=== PATIENT | female | born 1965 | race Hispanic/Latino ===

== ENCOUNTER 2018-12-30 13:25 | Emergency (ER) | payer OTHER ==
[2018-12-30 14:07] LABS: Urine Blood 1+ (NEG); Urine Glucose NEGATIVE (NEG); Urine Protein NEGATIVE (NEG)
[2018-12-30] MEDS ORDERED: FUROSEMIDE 40 MG/4 ML VIAL ONE (14:21)
[2018-12-30 14:27] LABS: Absolute Lymphocytes (CBC) 1.1 K/uL (0.7-4.9); Absolute Monocytes 0.3 K/uL (0.1-1.3); Absolute Neutrophil 3.4 K/uL (1.8-8.0); Basophils % 0.7 % (0-1.3); Eosinophils % 1.4 % (0-4.4); Hematocrit 38.1 % (36.0-45.0); Lymphocytes % 22.1 % (15.3-44.8); MPV 7.8 fL (7.6-11.3); Monocytes % 6.4 % (3.3-12.3); Protime INR 1.06; RBC Red Blood Cell Count 4.18 M/uL (3.86-4.86)
[2018-12-30 14:43] LABS: ALT/SGPT 25 U/L (12-78); AST/SGOT 13 U/L (15-37); Albumin 3.6 g/dL (3.4-5.0); Alkaline Phosphatase 108 U/L (45-117); BUN Blood Urea Nitrogen 12 mg/dL (7-18); Bicarbonate 26 mmol/L (21-32); Bilirubin Direct 0.1 mg/dL (0-0.2); Bilirubin Total 0.4 mg/dL (0.2-1.0); Glucose Level 87 mg/dL (74-106); NT PRO-BNP 47 pg/mL (<125); Potassium 3.5 mmol/L (3.5-5.1); Protein, Total 7.1 g/dL (6.4-8.2); Sodium Level 139 mmol/L (136-145); Troponin (Emerg Dept Use Only) < 0.02 ng/mL (0.0-0.045)
--- NOTE | 2018-12-30 14:56 | RAD REPORT ---
EXAM DESCRIPTION: RAD - Chest Single View - 12/30/2018 2:45 pm CLINICAL HISTORY: Leg swelling, shortness of breath COMPARISON: None. TECHNIQUE: AP portable chest image was obtained 1429 hours . FINDINGS: Lungs are clear. Heart and vasculature are normal. No measurable pleural effusion and no p neumothorax. No acute bony abnormality seen. No acute aortic findings suspected. IMPRESSION: No acute cardiopulmonary process.
--- NOTE | 2018-12-30 15:35 | RAD REPORT ---
EXAM DESCRIPTION: CT - Head Brain Wo Cont - 12/30/2018 3:27 pm CLINICAL HISTORY: ataxia CVA, TIA COMPARISON: No comparisons TECHNIQUE: All CT scans are performed using dose optimization technique as appropriate and may inclu de automated exposure control or mA/KV adjustment according to patient size. FINDINGS: No intracranial hemorrhage, hydrocephalus or extra-axial fluid collection.Advanced general ized brain atrophy is present with moderate periventricular and deep white matter chronic microvascul ar ischemic changes.No areas of brain edema or evidence of midline shift. The paranasal sinuses and mastoids are clear. The calvarium is intact. IMPRESSION: No acute intracranial abnormality.
--- NOTE | 2018-12-30 16:39 | RAD REPORT ---
EXAM DESCRIPTION: MRI - Brain Wo Cont - 12/30/2018 4:21 pm CLINICAL HISTORY: numbness CVA symptomology. COMPARISON: Head Brain Wo Cont dated 12/30/2018 TECHNIQUE: Multi-sequence, multiplanar MR imaging of the brain was performed without contrast. FINDINGS: No intracranial hemorrhage, hydrocephalus or extra-axial fluid collections.Prominent brain atrophy is seen with confluent T2/FLAIR hyperintensity in the periventricular and deep white matter compatible with chronic microvascular ischemic changes. No edema or shift of midline structures. No f indings to suspect brain mass. DWI is negative for acute CVA. Midline structures are normally formed. Mastoid air cells and paranasal sinuses are clear. IMPRESSION: Negative for acute CVA or other acute intracranial process.
--- NOTE | 2018-12-30 17:11 | EDPHYS ---
Physician Documentation [facility] Name: Erma Pham Age: 53 yrs Sex: Female : 1965 Arrival Date: 12/30/2018 Time: 13:29 Bed 18 Private MD: ED Physician Boris Guadarrama HPI: 12/30 16:05 This 53 yrs old Female presents to ER via Ambulatory with complaints of Leg kdr Pain, Numbness Of Hand. 16:05 The patient c/o pain and numbness to both upper extremities from the elbows down that kdr has been ongoing for the past six months. She also has swelling to both lower extremities for the past two to three months. Severity of symptoms: At their worst the symptoms were mild moderate just prior to arrival, in the emergency department the symptoms are unchanged. The patient has not experienced similar symptoms in the past. The patient has not recently seen a physician. 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 - Social history:: Smoking status: Patient/guardian denies using tobacco, Patient/guardian denies using alcohol. - Ebola Screening: : Patient negative for fever greater than or equal to 101.5 degrees Fahrenheit, and additional compatible Ebola Virus Disease symptoms Patient denies exposure to infectious person Patient denies travel to an Ebola-affected area in the 21 days before illness onset. ROS: 16:05 Constitutional: Negative for fever, chills, and weight loss, Eyes: Negative for injury, kdr pain, redness, and discharge, ENT: Negative for injury, pain, and discharge, Neck: Negative for injury, pain, and swelling, Cardiovascular: Negative for chest pain, palpitations, and edema, Respiratory: Negative for shortness of breath, cough, wheezing, and pleuritic chest pain, Abdomen/GI: Negative for abdominal pain, nausea, vomiting, diarrhea, and constipation, Back: Negative for injury and pain, : Negative for injury, bleeding, discharge, and swelling, Skin: Negative for injury, rash, and discoloration, Psych: Negative for depression, anxiety, suicide ideation, homicidal ideation, and hallucinations, Allergy/Immunology: Negative for hives, rash, and allergies, Endocrine: Negative for neck swelling, polydipsia, polyuria, polyphagia, and marked weight changes, Hematologic/Lymphatic: Negative for swollen nodes, abnormal bleeding, and unusual bruising. 16:05 MS/extremity: Positive for pain, swelling, tenderness, of the right leg and left leg, Negative for acute changes. 16:05 Neuro: Positive for numbness, tingling, of the right arm and left arm. Exam: 16:05 Constitutional: This is a well developed, well nourished patient who is awake, alert, kdr and in no acute distress. Head/Face: Normocephalic, atraumatic. Eyes: Pupils equal round and reactive to light, extra-ocular motions intact. Lids and lashes normal. Conjunctiva and sclera are non-icteric and not injected. Cornea within normal limits. Periorbital areas with no swelling, redness, or edema. Neck: Trachea midline, no thyromegaly or masses palpated, and no cervical lymphadenopathy. Supple, full range of motion without nuchal rigidity, or vertebral point tenderness. No Meningismus. Chest/axilla: Normal chest wall appearance and motion. Nontender with no deformity. No lesions are appreciated. Cardiovascular: Regular rate and rhythm with a normal S1 and S2. No gallops, murmurs, or rubs. Normal PMI, no JVD. No pulse deficits. Respiratory: Lungs have equal breath sounds bilaterally, clear to auscultation and percussion. No rales, rhonchi or wheezes noted. No increased work of breathing, no retractions or nasal flaring. Abdomen/GI: Soft, non-tender, with normal bowel sounds. No distension or tympany. No guarding or rebound. No evidence of tenderness throughout. Back: No spinal tenderness. No costovertebral tenderness. Full range of motion. Skin: Warm, dry with normal turgor. Normal color with no rashes, no lesions, and no evidence of cellulitis. Neuro: Awake and alert, GCS 15, oriented to person, place, time, and situation. Cranial nerves II-XII grossly intact. Motor strength 5/5 in all extremities. Sensory grossly intact. Cerebellar exam normal. Normal gait. Psych: Awake, alert, with orientation to person, place and time. Behavior, mood, and affect are within normal limits. 16:05 Musculoskeletal/extremity: Extremities: Vital Signs: 13:41 BP 153 / 95; Pulse 72; Resp 18; Temp 97.6(O); Pulse Ox 100% on R/A; Weight 79.38 kg; hj Height 5 ft. 2 in. (157.48 cm); Pain 10/10; 15:05 BP 148 / 83; Pulse 61; Resp 16; Pulse Ox 100% on R/A; Pain 10/10; ed1 17:09 Pulse 63; Resp 18; Pulse Ox 100% on R/A; Pain 7/10; ed1 13:41 Body Mass Index 32.01 (79.38 kg, 157.48 cm) hj MDM: 16:05 Data reviewed: vital signs, nurses notes. kdr 17:10 Patient medically screened. kdr 12/30 13:59 Order name: Urine Dipstick--Ancillary (enter results); Complete Time: 14:45 eb 12/30 14:05 Order name: Basic Metabolic Panel kdr 12/30 14:05 Order name: CBC with Diff; Complete Time: 14:45 kdr 12/30 14:05 Order name: LFT's; Complete Time: 14:45 kdr 12/30 14:05 Order name: Magnesium; Complete Time: 14:45 kdr 12/30 14:05 Order name: NT PRO-BNP; Complete Time: 14:45 kdr 12/30 14:05 Order name: PT-INR; Complete Time: 14:45 kdr 12/30 14:05 Order name: Troponin (emerg Dept Use Only); Complete Time: 14:45 kdr 12/30 14:05 Order name: XRAY Chest (1 view); Complete Time: 16:04 kdr 12/30 14:05 Order name: Basic Metabolic Panel; Complete Time: 14:45 EDMS 12/30 15:15 Order name: CT Head Brain wo Cont; Complete Time: 16:04 kdr 12/30 15:21 Order name: Brain Wo Cont; Complete Time: 17:07 EDMS 12/30 14:05 Order name: Cardiac monitoring; Complete Time: 14:16 kdr 12/30 14:05 Order name: IV Saline Lock; Complete Time: 14:16 kdr 12/30 14:05 Order name: Labs collected and sent; Complete Time: 14:16 kdr 12/30 14:05 Order name: O2 Per Protocol; Complete Time: 14:16 kdr 12/30 14:05 Order name: O2 Sat Monitoring; Complete Time: 14:16 kdr 12/30 14:05 Order name: EKG - Nurse/Tech; Complete Time: 14:26 kdr Administered Medications: 14:21 Drug: Lasix 40 mg Route: IVP; Site: right antecubital; ed1 15:09 Follow up: Response: No adverse reaction; pt to bathroom to void X2 ed1 17:23 Drug: Cipro 500 mg Route: PO; ed1 17:23 Follow up: Response: Medication administered at discharge. ed1 Disposition: 12/30/18 17:10 Discharged to Home. Impression: bilateral Upper extremity paresthesia, lower extremity swelling, weakness, urinary tract infection. - Condition is Stable. - Discharge Instructions: Urinary Tract Infection, Adult, Yiwa-wl-[id number], Edema, Hici-uw-Ewco, Weakness, Jntu-bd-Gxyj, Paresthesia, Hpse-kq-Lmwn, Peripheral Edema. - Prescriptions for Lasix 20 mg Oral Tablet - take 1 tablet by ORAL route once daily; 20 tablet. Cipro 500 mg Oral Tablet - take 1 tablet by ORAL route every 12 hours for 7 days; 14 tablet. - Medication Reconciliation Form, Thank You Letter, Antibiotic Education form. - Follow up: Private Physician; When: 2 - 3 days; Reason: If symptoms return, Further diagnostic work-up, Recheck today's complaints, Continuance of care, Re-evaluation by your physician. - Problem is new. - Symptoms have improved. Signatures: Dispatcher [employer] EDAL Boris Guadarrama MD MD kdr Lisha Sherman RN RN ed1 Kike Vernon RN RN Corrections: (The following items were deleted from the chart) 17:26 17:10 12/30/2018 17:10 Discharged to Home. Impression: bilateral Upper extremity ed1 paresthesia, lower extremity swelling, weakness, urinary tract infection. Condition is Stable. Forms are Medication Reconciliation Form, Thank You Letter, Antibiotic Education, Prescription Opioid Use. Follow up: Private Physician; When: 2 - 3 days; Reason: If symptoms return, Further diagnostic work-up, Recheck today's complaints, Continuance of care, Re-evaluation by your physician. Problem is new. Symptoms have improved. kdr
--- NOTE | 2018-12-30 17:11 | ER ---
Nurse's Notes [facility] Name: Erma Pham Age: 53 yrs Sex: Female : 1965 Arrival Date: 12/30/2018 Time: 13:29 Bed 18 Private MD: Diagnosis: bilateral Upper extremity paresthesia, lower extremity swelling, weakness, urinary tract infection Presentation: 12/30 13:34 Presenting complaint: Patient states: i have this numbness of my both hands for 6 hj months already; my L leg is hurting and is getting weak too for the same time, 6 months;. Transition of care: patient was not received from another setting of care. Onset of symptoms was December 30, 2018. Risk Assessment: Do you want to hurt yourself or someone else? Patient reports no desire to harm self or others. Initial Sepsis Screen: Does the patient meet any 2 criteria? No. Patient's initial sepsis screen is negative. Does the patient have a suspected source of infection? No. Patient's initial sepsis screen is negative. Care prior to arrival: None. 13:34 Method Of Arrival: Ambulatory 13:34 Acuity: JUSTIN 3 hj Triage Assessment: 13:35 General: Appears in no apparent distress. uncomfortable, Behavior is calm, cooperative, hj appropriate for age. 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 - Social history:: Smoking status: Patient/guardian denies using tobacco, Patient/guardian denies using alcohol. - Ebola Screening: : Patient negative for fever greater than or equal to 101.5 degrees Fahrenheit, and additional compatible Ebola Virus Disease symptoms Patient denies exposure to infectious person Patient denies travel to an Ebola-affected area in the 21 days before illness onset. Screenin:35 Abuse screen: Denies threats or abuse. Denies injuries from another. Nutritional hj screening: No deficits noted. Tuberculosis screening: No symptoms or risk factors identified. Fall Risk None identified. Assessment: 13:47 General: Appears uncomfortable, Behavior is calm, cooperative. Pain: Complains of pain ed1 in right hand, left hand, right leg and left leg Pain currently is 10 out of 10 on a pain scale. Quality of pain is described as aching, Pain began about 6 months ago. Neuro: Level of Consciousness is awake, alert, obeys commands, Oriented to person, place, time, situation, Crayon Painter are equal bilaterally Reports numbness in right hand and left hand. Cardiovascular: Denies chest pain, Heart tones S1 S2 present Chest pain is denied. Respiratory: Airway is patent Respiratory effort is even, unlabored, Respiratory pattern is regular, symmetrical, Breath sounds are clear bilaterally. GI: No signs and/or symptoms were reported involving the gastrointestinal system. : No signs and/or symptoms were reported regarding the genitourinary system. EENT: No signs and/or symptoms were reported regarding the EENT system. Derm: Skin is intact, is healthy with good turgor, Skin is dry, Skin is normal, Skin temperature is warm redness noted to bilateral lower extremities. Musculoskeletal: Circulation, motion, and sensation intact. Range of motion: intact in all extremities, Swelling present in right leg and left leg. 15:05 Reassessment: Patient appears in no apparent distress at this time. No changes from ed1 previously documented assessment. Patient and/or family updated on plan of care and expected duration. Pain level reassessed. Patient is alert, oriented x 3, equal unlabored respirations, skin warm/dry/pink. Patient states symptoms have not improved. 17:09 Reassessment: Pt returned from radiology. Pt refuses blood pressure checks. Pt states ed1 "The cuff is too tight and I don't like it.". Vital Signs: 13:41 BP 153 / 95; Pulse 72; Resp 18; Temp 97.6(O); Pulse Ox 100% on R/A; Weight 79.38 kg; hj Height 5 ft. 2 in. (157.48 cm); Pain 10/10; 15:05 BP 148 / 83; Pulse 61; Resp 16; Pulse Ox 100% on R/A; Pain 10/10; ed1 17:09 Pulse 63; Resp 18; Pulse Ox 100% on R/A; Pain 7/10; ed1 13:41 Body Mass Index 32.01 (79.38 kg, 157.48 cm) ED Course: 13:29 Patient arrived in ED. rg4 13:35 Triage completed. hj 13:35 Arm band placed on right wrist. hj 13:35 Patient has correct armband on for positive identification. Bed in low position. Call hj light in reach. Side rails up X 1. Adult w/ patient. 13:44 Boris Guadarrama MD is Attending Physician. kdr 13:47 Lisha Sherman, RN is Primary Nurse. ed1 14:16 Basic Metabolic Panel Sent. ed1 14:16 Initial lab(s) drawn, by ED staff, sent to lab. Inserted saline lock: 20 gauge in right ed1 antecubital area, using aseptic technique. Blood collected. 14:30 X-ray completed. Portable x-ray completed in exam room. Patient tolerated procedure jb2 well. 14:31 EKG done, by quality lab technician. reviewed by Boris Guadarrama MD. sm3 14:36 XRAY Chest (1 view) In Process Unspecified. EDMS 15:27 CT Head Brain wo Cont In Process Unspecified. EDMS 15:42 Patient moved to MRI via wheelchair. em2 16:21 Brain Wo Cont In Process Unspecified. EDMS 17:25 No provider procedures requiring assistance completed. IV discontinued, intact, ed1 bleeding controlled, No redness/swelling at site. Pressure dressing applied. Administered Medications: 14:21 Drug: Lasix 40 mg Route: IVP; Site: right antecubital; ed1 15:09 Follow up: Response: No adverse reaction; pt to bathroom to void X2 ed1 17:23 Drug: Cipro 500 mg Route: PO; ed1 17:23 Follow up: Response: Medication administered at discharge. ed1 Intake: Outcome: 17:10 Discharge ordered by . kdr 17:25 Discharged to home ambulatory, with family. ed1 17:25 Condition: good 17:25 Discharge instructions given to patient, Instructed on discharge instructions, follow up and referral plans. medication usage, Demonstrated understanding of instructions, follow-up care, medications, Prescriptions given X 2. 17:26 Patient left the ED. ed1 Signatures: Dispatcher [employer] EDMS Boris Guadarrama MD MD kdr Buechter, Jesse jb2 Lisha Sherman, RN RN ed1 Shaun Gutierrez em2 Kike Vernon RN RN hj Garcia, Rubi rg4 Angela Gutierrez sm3 Corrections: (The following items were deleted from the chart) 13:41 13:34 Presenting complaint: Patient states: i have this numbness of my hands for 6 hj months already; hj 13:43 13:41 Pulse 72bpm; Resp 18bpm; Pulse Ox 100% RA; Temp 97.6F Oral; 79.38 kg; Height 5 hj ft. 2 in.; BMI: 32.0; Pain 10/10; hj 13:44 13:41 Pulse 72bpm; Resp 18bpm; Pulse Ox 100% RA; Temp 97.6F Oral; 79.38 kg; Height 5 hj ft. 2 in.; BMI: 32.0; Pain 10/10; hj 14:05 13:34 Acuity: JUSTIN 4 hj hj
[2018-12-30] MEDS ORDERED: CIPROFLOXACIN HCL 500 MG TAB ONE (17:29)
--- NOTE | 2018-12-30 22:28 | EKG ---
Test Date: 2018-12-30 Test Time: 14:23:22 Customer Success Director: ZOE-Corrina MEASUREMENT RESULTS: Intervals: Rate: 62 TX: 188 QRSD: 84 QT: 436 QTc: 442 [place]: P: 73 TX: 188 QRS: 64 T: 30 INTERPRETIVE STATEMENTS: Normal sinus rhythm Nonspecific T wave abnormality Abnormal ECG Compared to ECG 04/24/1997 14:25:00 T-wave abnormality now present Electronically Signed On 12-30-18 22:27:33 ROBOTICS APPLICATION ENGINEER by Chava Last
== END 2018-12-30 17:26 | disposition home or self-care (01) ==
LOC: ER 13:25
DX: N39.0 Urinary tract infection, site not specified (principal); R20.2 Paresthesia of skin; R60.9 Edema, unspecified
CPT/HCPCS: 36415; 70450; 70551; 71045; 80048; 80076; 81003; 83735; 83880; 84484; 85025; 85610; 93005; 96374; 99284; J1940

== ENCOUNTER 2019-04-05 02:23 | Observation (INO) | payer OTHER ==
[2019-04-05 02:44] LABS: Absolute Lymphocytes (CBC) 0.3 K/uL (0.7-4.9); Absolute Monocytes 0.7 K/uL (0.1-1.3); Basophils % 0.5 % (0-1.3); Eosinophils % 0.1 % (0-4.4); Hematocrit 37.5 % (36.0-45.0); MPV 7.9 fL (7.6-11.3); Monocytes % 6.7 % (3.3-12.3); RBC Red Blood Cell Count 4.14 M/uL (3.86-4.86)
[2019-04-05 02:46] LABS: Protime INR 1.1
[2019-04-05 02:51] LABS: Potassium 3.3 mmol/L (3.5-5.1)
--- NOTE | 2019-04-05 02:56 | ER ---
Nurse's Notes [facility] Name: Erma Pham Age: 53 yrs Sex: Female : 1965 Arrival Date: 04/05/2019 Time: 02:26 Bed 2 Private MD: Diagnosis: Transient cerebral ischemic attacks and related syndromes Presentation: 04/05 02:16 Presenting complaint: EMS states: they were toned out for report of pt having right bb sided weakness with last known well time approx 2 hours prior to their arrival. Transition of care: patient was not received from another setting of care. Onset of symptoms was April 05, 2019. Risk Assessment: Do you want to hurt yourself or someone else? Patient reports no desire to harm self or others. Initial Sepsis Screen: Does the patient meet any 2 criteria? No. Patient's initial sepsis screen is negative. Does the patient have a suspected source of infection? No. Patient's initial sepsis screen is negative. Care prior to arrival: IV initiated. 18 GA, 20 GA, in the left in the right antecubital area, hand, Glucose check: 141. 02:16 Method Of Arrival: EMS: [facility] bb 02:16 Acuity: JUSTIN 2 bb 02:20 Note pt is c/o headache 9/. bb 02:25 No acute neurological deficit is noted. The patients blood glucose was checked before ea arriving to the hospital and was found to be normal. Triage Assessment: 02:45 The onset of the patients symptoms was April 05, 2019 at 00:00. 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 - Social history:: Smoking status: . - Ebola Screening: : No symptoms or risks identified at this time. Screenin:32 Abuse screen: Denies threats or abuse. Nutritional screening: No deficits noted. ea Tuberculosis screening: No symptoms or risk factors identified. Fall Risk IV access (20 points). Assessment: 02:36 General: Appears uncomfortable, Behavior is calm, cooperative. Pain: Complains of pain ea in top of head, forehead, right eye and left eye. Neuro: Level of Consciousness is awake, alert, obeys commands, Oriented to person, place, time, situation. Neuro: Reports headache frontal area. Cardiovascular: Patient's skin is warm and dry. Respiratory: Airway is patent Respiratory effort is even, unlabored, Respiratory pattern is regular, symmetrical. Derm: Skin is pink, warm \T\ dry. Musculoskeletal: Circulation, motion, and sensation intact. 02:44 VAN Scoring: Arm Drift: Patients demonstrates NO arm weakness. Patient is VAN Negative. ea The patient has not been NPO before screening. The patient is alert, and able to follow commands. The patient does not exhibit slurred or garbled speech. The patient is not exhibiting difficulty speaking. The patient does not exhibit difficulty understanding words. The patient is able to swallow own secretions with no drooling or need for suction. Patient tolerated one teaspoon of water. No drooling, immediate coughing, gurgling, or clearing of the throat was noted. The patient tolerated 90mL of water. No drooling, immediate coughing, gurgling, or clearing of the throat was noted. The patient passed the bedside swallow screening. Oral medications may be given as ordered. Contact Physician for further diet orders. Provider notified of bedside swallow screening results: Eric Diaz MD. 03:04 Reassessment: Pt sabrina Lin [phone]. ea 03:30 Reassessment: Patient and/or family updated on plan of care and expected duration. Pain ea level reassessed. Patient is alert, oriented x 3, equal unlabored respirations, skin warm/dry/pink. 03:40 Reassessment: Report called to Khang MIGUEL. ea 03:41 T-PA (Activase) Screening:. ea 04:03 Reassessment: Patient and/or family updated on plan of care and expected duration. Pain ea level reassessed. Patient is alert, oriented x 3, equal unlabored respirations, skin warm/dry/pink. Pt admitted to fourth floor, pt taken via wheelchair per tech, pt tolerating well. Vital Signs: 02:34 BP 145 / 93; Pulse 96; Resp 18; Temp 99.5(O); Pulse Ox 96% on R/A; Weight 76.2 kg (R); bb Height 5 ft. 2 in. (157.48 cm) (R); Pain 9/10; 03:00 BP 129 / 91; Pulse 95; Resp 18; Pulse Ox 100% ; ea 03:30 BP 134 / 82; Pulse 98; Resp 18; Pulse Ox 99% ; ea 04:00 BP 135 / 73; Pulse 98; Resp 18; Pulse Ox 99% on R/A; ea 02:34 Body Mass Index 30.73 (76.20 kg, 157.48 cm) bb NIH Stroke Scale Scores: 02:44 NIHSS Score: 0 ea 02:48 NIHSS Score: 0 ED Course: 02:26 Patient arrived in ED. bb 02:27 CT completed. Patient tolerated procedure well. Patient moved back from CT. eh 02:28 Eric Diaz MD is Attending Physician. gs 02:30 Gretchen Graves RN is Primary Nurse. ea 02:[address] from ambulance to CT by shane. eh 02:34 Patient has correct armband on for positive identification. Placed in gown. Bed in low ea position. Call light in reach. Side rails up X2. Adult w/ patient. 02:35 Arm band placed on right wrist. Patient placed in an exam room, on a stretcher, on ea playground monitor, on pulse oximetry. 02:36 Radiology exam delayed due to awaiting order so that it can be submitted for reading. eh 02:39 Triage completed. bb 02:40 X-ray completed. Portable x-ray completed in exam room. Patient tolerated procedure kw well. 02:45 CT Stroke Brain w/o Contrast In Process Unspecified. EDMS 02:46 Stroke CXR 1 View In Process Unspecified. EDMS 02:55 Yared Marshall MD is Hospitalizing Provider. gs 03:41 No provider procedures requiring assistance completed. ea 03:42 Patient admitted, IV remains in place. ea Administered Medications: No medications were administered Point of Care Testing: Blood Glucose: 02:43 Blood Glucose: 108 mg/dL; ea Ranges: Outcome: 02:56 Decision to Hospitalize by Provider. 03:59 Admitted to Med/surg accompanied by jayden, room 410, Report called to Khang MIGUEL ea 03:59 Condition: stable 03:59 Instructed on the need for admit. 04:07 Patient left the ED. kandi NIH Stroke Scale - NIH Stroke Score Date: 04/05/2019 Time: 02:44 Total Score = 0 1a. Level of Consciousness (LOC) - 0(Alert) 1b. Level of Consciousness (LOC) (Year \T\ Age) - 0(Both) 1c. LOC Commands (Open \T\ Closes Eyes/Dental Laboratory Technician Apprentice) - 0(Both) 2. Best Gaze (Lateral Gaze Paresis) - 0(Normal) 3. Visual Field Loss - 0(No visual loss) 4. Facial Palsy - 0(Normal) 5a. Left Arm: Motor (10-second hold) - 0(No drift) 5b. Right Arm: Motor (10-second hold) - 0(No drift) 6a. Left Leg: Motor (5-second hold - always test supine) - 0(No drift) 6b. Right Leg: Motor (5-second hold - always test supine) - 0(No drift) 7. Limb Ataxia (finger/nose \T\ heel/ruiz - test with eyes open) - 0(Absent) 8. Sensory Loss (pinprick arms/legs/face) - 0(Normal) 9. Best Language: Aphasia (description/naming/reading) - 0(No aphasia) 10. Dysarthria (speech clarity - read or repeat words) - 0(Normal) 11. Extinction and Inattention (visual/tactile/auditory/spatial/personal) - 0(No abnormality) Initials: kandi NIH Stroke Scale - NIH Stroke Score Date: 04/05/2019 Time: 02:48 Total Score = 0 1a. Level of Consciousness (LOC) - 0(Alert) 1b. Level of Consciousness (LOC) (Year \T\ Age) - 0(Both) 1c. LOC Commands (Open \T\ Closes Eyes/Dental Laboratory Technician Apprentice) - 0(Both) 2. Best Gaze (Lateral Gaze Paresis) - 0(Normal) 3. Visual Field Loss - 0(No visual loss) 4. Facial Palsy - 0(Normal) 5a. Left Arm: Motor (10-second hold) - 0(No drift) 5b. Right Arm: Motor (10-second hold) - 0(No drift) 6a. Left Leg: Motor (5-second hold - always test supine) - 0(No drift) 6b. Right Leg: Motor (5-second hold - always test supine) - 0(No drift) 7. Limb Ataxia (finger/nose \T\ heel/ruiz - test with eyes open) - 0(Absent) 8. Sensory Loss (pinprick arms/legs/face) - 0(Normal) 9. Best Language: Aphasia (description/naming/reading) - 0(No aphasia) 10. Dysarthria (speech clarity - read or repeat words) - 0(Normal) 11. Extinction and Inattention (visual/tactile/auditory/spatial/personal) - 0(No abnormality) Initials: Signatures: Dispatcher [employer] Irwin Rizo Brenda, RN RN bb Whitley, Kimberlee kw Antunez, Elena, RN RN ea Starr, Gregory, MD MD gs Corrections: (The following items were deleted from the chart) 02:40 02:34 BP 145 / 93; Pulse 96bpm; Resp 18bpm; Pulse Ox 96% RA; kandi trejo
--- NOTE | 2019-04-05 02:57 | EDPHYS ---
Physician Documentation [facility] Name: Erma Pham Age: 53 yrs Sex: Female : 1965 Arrival Date: 04/05/2019 Time: 02:26 Bed 2 Private MD: ED Physician Eric Diaz HPI: 04/05 02:48 This 53 yrs old Female presents to ER via EMS with complaints of Weakness. gs 02:48 The patient presents to the emergency department with weakness of the right upper gs extremity, that is moderate, right lower extremity, that is moderate, per son. Onset: The symptoms/episode began/occurred 2 hour(s) ago. Associated signs and symptoms: Pertinent negatives: altered mental status, nausea. Severity of symptoms: At their worst the symptoms were moderate in the emergency department the symptoms have resolved. Patient's baseline: Ambulation: walks with assist only. The patient has experienced similar episodes in the past, a few times. The patient has not recently seen a physician. 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 - Social history:: Smoking status: . - Ebola Screening: : No symptoms or risks identified at this time. ROS: 02:48 All other systems are negative. gs Exam: 02:48 Head/Face: Normocephalic, atraumatic. Eyes: Pupils equal round and reactive to light, gs extra-ocular motions intact. Lids and lashes normal. Conjunctiva and sclera are non-icteric and not injected. Cornea within normal limits. Periorbital areas with no swelling, redness, or edema. ENT: Nares patent. No nasal discharge, no septal abnormalities noted. Tympanic membranes are normal and external auditory canals are clear. Oropharynx with no redness, swelling, or masses, exudates, or evidence of obstruction, uvula midline. Mucous membranes moist. Neck: Trachea midline, no thyromegaly or masses palpated, and no cervical lymphadenopathy. Supple, full range of motion without nuchal rigidity, or vertebral point tenderness. No Meningismus. Chest/axilla: Normal chest wall appearance and motion. Nontender with no deformity. No lesions are appreciated. Cardiovascular: Regular rate and rhythm with a normal S1 and S2. No gallops, murmurs, or rubs. Normal PMI, no JVD. No pulse deficits. Respiratory: Lungs have equal breath sounds bilaterally, clear to auscultation and percussion. No rales, rhonchi or wheezes noted. No increased work of breathing, no retractions or nasal flaring. Abdomen/GI: Soft, non-tender, with normal bowel sounds. No distension or tympany. No guarding or rebound. No evidence of tenderness throughout. Back: No spinal tenderness. No costovertebral tenderness. Full range of motion. Skin: Warm, dry with normal turgor. Normal color with no rashes, no lesions, and no evidence of cellulitis. 02:48 Constitutional: The patient appears alert, awake. 02:48 Musculoskeletal/extremity: Pulses: are normal with no appreciated deficits. 02:48 Neuro: Orientation: is normal, Mentation: is normal, Cranial nerves: CN II- XII are normal as tested, Cerebellar function: normal finger to nose testing, Motor: moves all fours, Strength is 3/5 in the right leg and left leg, chronic per patient, Sensation: no acute changes, Deep tendon reflexes are 2+ (normal) in the right patellar and left patellar. 02:48 ECG was reviewed by the Attending Physician. Vital Signs: 02:34 BP 145 / 93; Pulse 96; Resp 18; Temp 99.5(O); Pulse Ox 96% on R/A; Weight 76.2 kg (R); bb Height 5 ft. 2 in. (157.48 cm) (R); Pain 9/10; 03:00 BP 129 / 91; Pulse 95; Resp 18; Pulse Ox 100% ; ea 03:30 BP 134 / 82; Pulse 98; Resp 18; Pulse Ox 99% ; ea 04:00 BP 135 / 73; Pulse 98; Resp 18; Pulse Ox 99% on R/A; ea 02:34 Body Mass Index 30.73 (76.20 kg, 157.48 cm) NIH Stroke Scale Scores: 02:44 NIHSS Score: 0 ea 02:48 NIHSS Score: 0 MDM: 02:35 Patient medically screened. 02:48 Data reviewed: vital signs, nurses notes, lab test result(s), EKG, radiologic studies. Response to treatment: the patient's symptoms have resolved after treatment. ED course: no tpa nih 0, lower extremity weakness chronic not acute. 04/05 02:36 Order name: Basic Metabolic Panel; Complete Time: 02:56 04/05 02:36 Order name: CBC with Diff 04/05 02:36 Order name: Protime (+inr); Complete Time: 02:56 04/05 03:10 Order name: Urinalysis W/Microscopic [facility] 04/05 03:10 Order name: Vitamin B12 Level [facility] 04/05 03:10 Order name: Vitamin B12 Level [facility] 04/05 02:36 Order name: CT Stroke Brain w/o Contrast 04/05 02:36 Order name: Stroke CXR 1 View 04/05 03:09 Order name: Echo with Doppler [facility] 04/05 03:10 Order name: Stroke Protocol [facility] 04/05 03:10 Order name: Chest Pa And Lat (2 Views) [facility] 04/05 03:10 Order name: Folic Acid, (Folate) [facility] 04/05 03:10 Order name: Folic Acid, (Folate) [facility] 04/05 03:52 Order name: CBC Smear Scan [facility] 04/05 02:36 Order name: EKG; Complete Time: 02:37 04/05 02:36 Order name: Accucheck; Complete Time: 02:45 04/05 02:36 Order name: Cardiac monitoring; Complete Time: 02:38 04/05 02:36 Order name: EKG - Nurse/Tech; Complete Time: 02:45 04/05 02:36 Order name: IV Saline Lock; Complete Time: 02:38 04/05 02:36 Order name: Labs collected and sent; Complete Time: 02:38 04/05 02:36 Order name: NPO; Complete Time: 02:45 04/05 02:36 Order name: O2 Per Protocol; Complete Time: 02:46 04/05 02:36 Order name: O2 Sat Monitoring; Complete Time: 02:46 04/05 02:36 Order name: Stroke Swallow Screen; Complete Time: 02:45 04/05 03:09 Order name: Physical Therapy Consult [facility] 04/05 03:09 Order name: NPO EDCA 04/05 03:09 Order name: NPO EDMS 04/05 03:09 Order name: NPO EDMS 04/05 03:09 Order name: EKG Electrocardiogram [facility]CA 04/05 03:10 Order name: Speech Therapy Consult [facility] EC:48 Rate is 97 beats/min. Rhythm is regular. GA interval is normal. QRS interval is normal. gs T waves are Inverted in leads V3, V4, V5, V6. Clinical impression: NSR w/ Non-specific ST/T Changes and Abnormal EKG without significant change. Interpreted by me. Administered Medications: No medications were administered Point of Care Testing: Blood Glucose: 02:43 Blood Glucose: 108 mg/dL; ea Ranges: Critical Glucose Levels:Adult <50 mg/dl or >400 mg/dl <40 mg/dl or >180 mg/dl Disposition: 04/05/19 02:56 Hospitalization ordered by Yared Marshall for Observation. Preliminary diagnosis is Transient cerebral ischemic attacks and related syndromes. - Bed requested for Telemetry/MedSurg (observation). - Status is Observation. ea - Condition is Stable. - Problem is new. - Symptoms have improved. UTI on Admission? No Critical care time excluding procedures: 02:48 Critical care time: Bedside Care: 10 minutes, Consultation: 10 minutes, Family gs Intervention: 10 minutes. Total time: 30 minutes NIH Stroke Scale - NIH Stroke Score Date: 04/05/2019 Time: 02:44 Total Score = 0 1a. Level of Consciousness (LOC) - 0(Alert) 1b. Level of Consciousness (LOC) (Year \T\ Age) - 0(Both) 1c. LOC Commands (Open \T\ Closes Eyes/Make Up Man) - 0(Both) 2. Best Gaze (Lateral Gaze Paresis) - 0(Normal) 3. Visual Field Loss - 0(No visual loss) 4. Facial Palsy - 0(Normal) 5a. Left Arm: Motor (10-second hold) - 0(No drift) 5b. Right Arm: Motor (10-second hold) - 0(No drift) 6a. Left Leg: Motor (5-second hold - always test supine) - 0(No drift) 6b. Right Leg: Motor (5-second hold - always test supine) - 0(No drift) 7. Limb Ataxia (finger/nose \T\ heel/ruiz - test with eyes open) - 0(Absent) 8. Sensory Loss (pinprick arms/legs/face) - 0(Normal) 9. Best Language: Aphasia (description/naming/reading) - 0(No aphasia) 10. Dysarthria (speech clarity - read or repeat words) - 0(Normal) 11. Extinction and Inattention (visual/tactile/auditory/spatial/personal) - 0(No abnormality) Initials: kandi NIH Stroke Scale - NIH Stroke Score Date: 04/05/2019 Time: 02:48 Total Score = 0 1a. Level of Consciousness (LOC) - 0(Alert) 1b. Level of Consciousness (LOC) (Year \T\ Age) - 0(Both) 1c. LOC Commands (Open \T\ Closes Eyes/Make Up Man) - 0(Both) 2. Best Gaze (Lateral Gaze Paresis) - 0(Normal) 3. Visual Field Loss - 0(No visual loss) 4. Facial Palsy - 0(Normal) 5a. Left Arm: Motor (10-second hold) - 0(No drift) 5b. Right Arm: Motor (10-second hold) - 0(No drift) 6a. Left Leg: Motor (5-second hold - always test supine) - 0(No drift) 6b. Right Leg: Motor (5-second hold - always test supine) - 0(No drift) 7. Limb Ataxia (finger/nose \T\ heel/ruiz - test with eyes open) - 0(Absent) 8. Sensory Loss (pinprick arms/legs/face) - 0(Normal) 9. Best Language: Aphasia (description/naming/reading) - 0(No aphasia) 10. Dysarthria (speech clarity - read or repeat words) - 0(Normal) 11. Extinction and Inattention (visual/tactile/auditory/spatial/personal) - 0(No abnormality) Initials: Signatures: Dispatcher [employer] EDJohanna Thorpe RN RN bb Garcia, Cindy, RN RN cg Antunez, Elena, RN RN ea Starr, Gregory, MD MD gs Corrections: (The following items were deleted from the chart) 03:34 02:56 Hospitalization Ordered by Yared Marshall MD for Observation. Preliminary diagnosis is Transient cerebral ischemic attacks and related syndromes. Bed requested for Telemetry/MedSurg (observation). Status is Observation. Condition is Stable. Problem is new. Symptoms have improved. UTI on Admission? No. gs 04:07 03:34 04/05/2019 02:56 Hospitalization Ordered by Yared Marshall MD for ea Observation. Preliminary diagnosis is Transient cerebral ischemic attacks and related syndromes. Bed requested for Telemetry/MedSurg (observation). Status is Observation. Condition is Stable. Problem is new. Symptoms have improved. UTI on Admission? No. cg
[2019-04-05] MEDS ORDERED: ONDANSETRON 4 MG/2 ML VIAL IV PRN (03:01)
[2019-04-05] MEDS ORDERED: ACETAMINOPHEN 500 MG TAB PO PRN (03:01)
[2019-04-05 03:52] LABS: Blood Morphology Comment NOT SEEN (NOT SEEN); Platelet Estimate ADEQ; Urine White Blood Cell Casts OK
[2019-04-05] MEDS ORDERED: NA CHLORIDE 0.9% 1,000 ML IV SCH (04:00)
[2019-04-05 05:19] LABS: Urine Appearance CLOUDY; Urine Bilirubin NEGATIVE (NEG); Urine Blood 2+ (NEG); Urine Color YELLOW; Urine Glucose NEGATIVE (NEG); Urine Protein NEGATIVE (NEG); Urine Specific Gravity 1.015 (1.005-1.030)
[2019-04-05 05:50] LABS: Urine Bacteria LOADED /HPF (<20); Urine Culture Reflex Order REFLEXED
[2019-04-05] MEDS: KCL 20 MEQ/100 mL IVPB 20 MEQ/100 ML BAG IV SCH ×2 (06:05→08:00)
[2019-04-05] MEDS ORDERED: LORazepam 2 MG/ML VIAL IV ONE (06:44)
--- NOTE | 2019-04-05 08:15 | RAD REPORT ---
EXAM DESCRIPTION: RAD - Chest Single View - 04/05/2019 2:45 am CLINICAL HISTORY: MALAISE Chest pain. COMPARISON: Chest Single View dated 12/30/2018 FINDINGS: Portable technique limits examination quality. The lungs are grossly clear. The heart is normal in size. No displaced fractures. IMPRESSION: No acute intrathoracic process suspected.
--- NOTE | 2019-04-05 08:17 | P.HP ---
Certification for Inpatient Patient admitted to: Observation With expected LOS: <2 Midnights Patient will require the following post-hospital care: None Practitioner: I am a practitioner with admitting privileges, knowledge of patient current condition, hospital course, and medical plan of care. Services: Services provided to patient in accordance with Admission requirements found in Title 42 Section 412.3 of the Code of Federal Regulations Patient History Date of Service: 04/05/19 Reason for admission: CVA vs. TI a/right-sided weakness History of Present Illness: Patient is a 53-year-old female who came into the hospital because she started having weakness of the right side of the body. This affected her upper and lower extremities but did not affect her face. She did not have any difficulty with speech. There was no dysarthria. Patient has had a lot of stressors lately mostly related to personal issues. There were family members in the room so she didn't really elaborate. According to the ER physician, her symptoms completely resolved. She is doing much better at this time. She seems more relax. MRI is pending at CT scan was negative. We have ordered anti -platelet therapy and statin therapy. She is also ordered to get Lovenox but I would wait till MRI is completed to make sure there is no risk of worsening clinical picture. Hemodynamically patient is also very stable. Patient is admitted for observation because if this is just a TIA in related to the stressors in her life she should be able to go home. Will be a would not tell more once we get this MRI performed Allergies No Known Allergies Allergy (Unverified 04/05/19 03:44) Home Medications: Aspirin [Aspirin EC 325 MG] 325 mg PO DAILY PRN 04/05/19 - Past Medical/Surgical History Has patient received pneumonia vaccine in the past: No Diabetic: No Past Medical History: Patient denies medical history -: -: cholecystectomy - Family History Father Family History: Reviewed- Non-Contributory - Social History Smoking Status: Former smoker Alcohol use: No CD- Drugs: No Caffeine use: Yes Place of Residence: Home Review of Systems 10-point ROS is otherwise unremarkable Physical Examination - Vital Signs Temperature: 97.0 F Blood Pressure: 133/70 Pulse: 95 Respirations: 16 Pulse Ox (%): 97 - Physical Exam General: Alert, In no apparent distress, Oriented x3 HEENT: Atraumatic, PERRLA, Mucous membr. moist/pink, EOMI, Sclerae nonicteric Neck: Supple, 2+ carotid pulse no bruit, No LAD, Without JVD or thyroid abnormality Respiratory: Clear to auscultation bilaterally, Normal air movement Cardiovascular: Regular rate/rhythm, Normal S1 S2, No murmurs Gastrointestinal: Normal bowel sounds, Soft and benign, Non-distended, No tenderness Musculoskeletal: No clubbing, No swelling, No tenderness Integumentary: No rashes Neurological: Normal gait, Normal speech, Normal strength at 5/5 x4 extr, Normal tone, Sensation intact, Cranial nerves 3-12 intact, Normal affect Lymphatics: No axilla or inguinal lymphadenopathy - Studies Laboratory Data (last 24 hrs) 04/05/19 02:30: PT 12.9 H, INR 1.10 04/05/19 02:30: WBC 11.1 H, Hgb 12.8, Hct 37.5, Plt Count 246 04/05/19 02:30: Sodium 144, Potassium 3.3 L, BUN 12, Creatinine 0.96, Glucose 102 Assessment & Plan - Problems (Diagnosis) (1) TIA (transient ischemic attack) Current Visit: Yes Status: Acute (2) Right sided weakness Current Visit: Yes Status: Acute (3) CVA (cerebral vascular accident) Current Visit: Yes Status: Acute (4) UTI (urinary tract infection) Current Visit: Yes Status: Acute - Plan 1. Physical therapy evaluation 2. Speech therapy evaluation 3. Anti-platelet therapy and statin therapy 4. Lipid profile in the morning 5. MRI of the brain 6. Physically patient is doing well; this may be related to stressors in life. May need further outpatient follow-up if her workup is negative 7. Neurology consultation 8. If patient has had a stroke, then patient would need permissive hypertension and gradual blood pressure control 9. Neuro checks every 4 hr 10. GI and DVT prophylaxis Discharge Plan: Home Plan to discharge in: 24 Hours - Advance Directives Does patient have a Living Will: No Does patient have a Durable POA for Healthcare: No - Code Status/Comfort Care Code Status Assessed: Yes Code Status: Full Code Critical Care: No Time Spent Managing PTS Care (In Minutes): 45
[2019-04-05] MEDS ORDERED: CLOPIDOGREL 75 MG TABLET PO SCH (09:00)
[2019-04-05] MEDS ORDERED: ASPIRIN EC 81 MG TAB PO SCH (09:00)
--- NOTE | 2019-04-05 09:05 | RAD REPORT ---
EXAM DESCRIPTION: MRI - Brain W/Wo Cont - 04/05/2019 8:42 am CLINICAL HISTORY: R/O CVA COMPARISON: MRA Head Wo Cont dated 04/05/2019 TECHNIQUE: Multi-sequence, multiplanar MR imaging of the brain was performed with contrast. FINDINGS: No intracranial hemorrhage, hydrocephalus, or extra-axial fluid collection.Moderate genera lized brain atrophy is present with moderate periventricular and deep white matter chronic microvascu lar ischemic changes. No edema or shift of midline structures. No intracranial mass. DWI is negative for acute CVA. The midline structures are normally formed. Mastoid air cells and paranasal sinuses are clear. Post-contrast images show no abnormal enhancement to suggest tumor or infection. IMPRESSION: Negative for acute CVA or other acute intracranial abnormality. No pathologic post-contrast enhancement suspected.
--- NOTE | 2019-04-05 09:08 | RAD REPORT ---
EXAM DESCRIPTION: MRI - MRA Head Wo Cont - 04/05/2019 8:43 am CLINICAL HISTORY: CVA CVA COMPARISON: Ct Stroke Brain Wo Cont dated 04/05/2019 FINDINGS: 3D noncontrast [id number] MR angiography of the [place] was performed. No aneurysm, flow-limiting stenosis or vascular malformation is seen. Forward flow seen in codominant vertebral arteries. The visualized dural venous sinuses appear patent. IMPRESSION: No significant flow abnormality of the [place] is identified.
--- NOTE | 2019-04-05 09:10 | RAD REPORT ---
EXAM DESCRIPTION: MRI - MRA Neck W/Wo Cont - 04/05/2019 8:43 am CLINICAL HISTORY: R/O CVA Headache, drowsiness, CVA COMPARISON: No comparisons FINDINGS: Contrast enhance 2D [id number] MR angiography of the neck vessels was performed. A left aortic arch is noted with normal great vessel branching pattern seen. Both common carotid artery and subclavian arteries are patent. Both internal carotid arteries are pat ent without evidence of stenosis. Antegrade flow is seen in both vertebral arteries which are codomin ant. IMPRESSION: No significant flow abnormality of the neck vessels identified.
--- NOTE | 2019-04-05 09:43 | RAD REPORT ---
EXAM DESCRIPTION: RAD - Chest Pa And Lat (2 Views) - 04/05/2019 8:30 am CLINICAL HISTORY: Stroke Chest pain. COMPARISON: Chest Single View dated 04/05/2019; Chest Single View dated 12/30/2018 FINDINGS: The lungs are clear. The heart is mildly enlarged in size. No displaced fractures. IMPRESSION: Mild cardiomegaly.
--- NOTE | 2019-04-05 09:55 | RAD REPORT ---
EXAM DESCRIPTION: Ct Stroke Brain Wo Cont ADDENDUM #1 THIS REPORT CONTAINS FINDINGS THAT MAY BE CRITICAL TO PATIENT CARE: The findings were verbally discussed via telephone conference with Dr. Eric Diaz by Dr. Alexa Rg on 04/05/2019 2:50 AM CDT .The results were acknowledged and understood. Electronically signed by: Gardenia Rg MD 04/05/2019 2:51 AM CDT End of Addendum EXAM DESCRIPTION: CT Head Without Intravenous Contrast CLINICAL HISTORY: The patient is 53 years old and is Female; TIA TECHNIQUE: Axial computed tomography images of the head/brain without intravenous contrast. Sagitt al and coronal reformatted images were created and reviewed. This CT exam was performed using one o r more of the following dose reduction techniques: automated exposure control, adjustment of the mA and/or kV according to patient size, and/or use of iterative reconstruction technique. COMPARISON: CT of the head December 30, 2018. FINDINGS: BRAIN: Diffuse cerebral atrophy is present, advanced for patient's stated age. Extensive periventricular white matter abnormality is noted, similar to prior exam. No intracranial hemorrha ge, mass effect, or midline shift is seen. There are no extra-axial fluid collections. VENTRICLES: The ventricles are prominent, also stable from prior exam. There is no transependyma l flow. BONES/JOINTS: No acute fracture. SOFT TISSUES: Unremarkable. SINUSES: Unremarkable as visualized. No acute sinusitis. MASTOID AIR CELLS: Unremarkable as visualized. No mastoid effusion. IMPRESSION: No acute intracranial findings or detrimental change from prior exam. Electronically signed by: Gardenia Rg MD 04/05/2019 2:48 AM CDT Due to temporary technical issues with the PACS/Fluency reporting system, reports are being signed by the in house radiologist as a courtesy to ensure prompt reporting. The interpreting radiologist is f ully responsible for the content of the report.
--- NOTE | 2019-04-05 11:23 | EKG ---
Test Date: 2019-04-05 Test Time: 02:44:15 Fresh Work Wrapper Layer: RR MEASUREMENT RESULTS: Intervals: Rate: 97 WA: 146 QRSD: 80 QT: 350 QTc: 444 [place]: P: WA: 146 QRS: 139 T: 190 INTERPRETIVE STATEMENTS: Normal sinus rhythm Left posterior fascicular block ST & T wave abnormality, consider anterolateral ischemia Abnormal ECG Compared to ECG 12/30/2018 14:23:22 Left posterior fascicular block now present ST (T wave) deviation now present Possible ischemia now present T-wave abnormality no longer present Electronically Signed On 04-05-19 11:23:33 CDT by Jaun Alexandre
--- NOTE | 2019-04-05 13:51 | ECHO ---
HEIGHT: 5 ft 2 in WEIGHT: 177 lb 12.8 oz DATE OF STUDY: 04/05/[address]: Yared Marshall MD 2-DIMENSIONAL: YES M.MODE: YES DOPPLER: YES COLOR FLOW: YES TDS: NO PORTABLE: NO DEFINITY: NO BUBBLE STUDY: NO DIAGNOSIS: STROKE CARDIAC HISTORY: CATHERIZATION: NO SURGERY: NO PROSTHETIC VALVE: NO PACEMAKER: NO MEASUREMENTS (cm) DIASTOLIC (NORMALS) SYSTOLIC (NORMALS) IVSd 1.0 (0.6-1.2) LA Diam 3.2 (1.9-4.0) LVEF 61% LVIDd 4.0 (3.5-5.7) LVIDs 2.7 (2.0-3.5) %FS 32% LVPWd 1.0 (0.6-1.2) Ao Diam 2.9 (2.0-3.7) 2 DIMENSIONAL ASSESSMENT: RIGHT ATRIUM: NORMAL LEFT ATRIUM: NORMAL RIGHT VENTRICLE: NORMAL LEFT VENTRICLE: NORMAL TRICUSPID VALVE: NORMAL MITRAL VALVE: NORMAL PULMONIC VALVE: NORMAL AORTIC VALVE: NORMAL PERICARDIAL EFFUSION: NONE AORTIC ROOT: NORMAL LEFT VENTRICULAR WALL MOTION: NORMAL. DOPPLER/COLOR FLOW: PHYSIOLOGICAL TRICUSPID VALVE. NORMAL RIGHT VENTRICULAR SYSTOLIC PRESSURE. COMMENTS: NORMAL 2D ECHOCARDIOGRAM WITH DOPPLER. TECHNOLOGIST: DA DOTSON RDCS
--- NOTE | 2019-04-05 14:36 | P.SSS ---
Patient History Date of Service: 04/05/19 Reason for admission: CVA vs. TI a/right-sided weakness History of Present Illness: Patient is a 53-year-old female who came into the hospital because she started having weakness of the right side of the body. This affected her upper and lower extremities but did not affect her face. She did not have any difficulty with speech. There was no dysarthria. Patient has had a lot of stressors lately mostly related to personal issues. There were family members in the room so she didn't really elaborate. According to the ER physician, her symptoms completely resolved. She is doing much better at this time. She seems more relax. MRI is pending at CT scan was negative. We have ordered anti -platelet therapy and statin therapy. She is also ordered to get Lovenox but I would wait till MRI is completed to make sure there is no risk of worsening clinical picture. Hemodynamically patient is also very stable. Patient is admitted for observation because if this is just a TIA in related to the stressors in her life she should be able to go home. Will be a would not tell more once we get this MRI performed Allergies No Known Allergies Allergy (Unverified 04/05/19 03:44) Home Medications: Amoxicillin/Potassium Clav [Augmentin 500-125 Tablet] 1 each PO BID #14 tablet 04/05/19 Aspirin [Aspirin EC 325 MG] 325 mg PO DAILY PRN 04/05/19 Atorvastatin Calcium [Lipitor*] 40 mg PO BEDTIME #30 tab 04/05/19 - Past Medical/Surgical History Has patient received pneumonia vaccine in the past: No Diabetic: No -: -: cholecystectomy - Social History Smoking Status: Former smoker Alcohol use: No CD- Drugs: No Caffeine use: Yes Place of Residence: Home Review of Systems 10-point ROS is otherwise unremarkable Physical Examination - Vital Signs Temperature: 97.0 F Blood Pressure: 133/70 Pulse: 95 Respirations: 16 Pulse Ox (%): 97 - Physical Exam General: Alert, In no apparent distress HEENT: Atraumatic, PERRLA, Mucous membr. moist/pink, EOMI, Sclerae nonicteric Neck: Supple, 2+ carotid pulse no bruit, No LAD, Without JVD or thyroid abnormality Respiratory: Clear to auscultation bilaterally, Normal air movement Cardiovascular: Regular rate/rhythm, Normal S1 S2 Gastrointestinal: Normal bowel sounds, No tenderness Musculoskeletal: No tenderness Integumentary: No rashes Neurological: Normal gait, Normal speech, Normal strength at 5/5 x4 extr, Normal tone, Normal affect Lymphatics: No axilla or inguinal lymphadenopathy - Studies Laboratory Data (last 24 hrs) 04/05/19 02:30: PT 12.9 H, INR 1.10 04/05/19 02:30: WBC 11.1 H, Hgb 12.8, Hct 37.5, Plt Count 246 04/05/19 02:30: Sodium 144, Potassium 3.3 L, BUN 12, Creatinine 0.96, Glucose 102 Treatment Summary: Overall during the hospital stay patient remained stable The patient was admitted to the hospital to rule out CVA. Patient had right lower leg extremity numbness and tingling along with weakness. Which did resolve here in the hospital after admission. Patient had MRI done along with neck MRA which were all negative for CVA. Patient did not have acute stroke. Patient signs and symptoms were consistent with TIA. Lab work was ordered however patient stated that she would like to go home and will get lab work done outpatient. Patient then was discharged home under stable condition was asked to follow up with primary care provider in about 1-2 days post discharge. Patient demonstrated understanding and was educated on her disease process swedish as well. - Disposition Disposition: ROUTINE DISCHARGE Condition: FAIR Diet: Regular Activity: Ad femi
[2019-04-05] MEDS ORDERED: ENOXAPARIN 40 MG/0.4 ML SQ SCH (17:00)
[2019-04-05] MEDS ORDERED: ATORVASTATIN 20 MG TAB PO SCH (21:00)
== END 2019-04-05 11:49 | disposition home or self-care (01) ==
LOC: ER 02:23 → ERHOLD 03:16 → 4TH 03:55
PROVIDERS: ADMIT Hospitalist; ATTEND Family Medicine
DX: N39.0 Urinary tract infection, site not specified (principal); R53.1 Weakness; R20.0 Anesthesia of skin; I44.5 Left posterior fascicular block; R94.31 Abnormal electrocardiogram [ECG] [EKG]; I51.7 Cardiomegaly; Z79.82 Long term (current) use of aspirin; Z79.899 Other long term (current) drug therapy; Z87.891 Personal history of nicotine dependence
CPT/HCPCS: 36415; 70450; 70544; 70549; 70553; 71045; 71046; 80048; 81001; 82962; 85025; 85610; 87077; 87086; 87088; 87186; 92610; 93005; 93306; 97163; 99285; A9577; G0378; J1650; J7030

== ENCOUNTER 2021-09-21 13:36 | Emergency (ER) | payer OTHER ==
--- NOTE | 2021-09-21 15:25 | RAD REPORT ---
EXAM DESCRIPTION: RAD - Chest Single View - 09/21/2021 3:02 pm CLINICAL HISTORY: Weakness COMPARISON: April 2019 TECHNIQUE: AP portable chest image was obtained 09/21/2021 3:02 pm . FINDINGS: Lungs are clear. Heart and vasculature are normal. No measurable pleural effusion and no p neumothorax. No acute bony abnormality seen. No acute aortic findings suspected. IMPRESSION: No acute cardiopulmonary process. No significant change from comparison study.
--- NOTE | 2021-09-21 15:25 | RAD REPORT ---
EXAM DESCRIPTION: CT - Head Brain Wo Cont - 09/21/2021 2:56 pm CLINICAL HISTORY: WEAKNESS COMPARISON: Ct Stroke Brain Wo Cont dated 04/05/2019; Brain W/Wo Cont dated 04/05/2019 TECHNIQUE: Axial 5 mm thick images of the head were obtained without IV contrast. All CT scans are performed using dose optimization technique as appropriate and may include automated exposure control or mA/KV adjustment according to patient size. FINDINGS: No intracranial hemorrhage, mass, edema or shift of mid-line structures. There is no corti nick based infarction identified. No cortical edema or sulcal effacement seen. Patient has advanced fo r age atrophy and chronic ischemic change. Ventricles are in proportion to volume loss. A 10 millimet er rounded area of diminished attenuation in the posterior left thalamus has developed since the prio r imaging. The relative density of this thalamic finding suggests that it is remote; however, this is not definitive. Bilateral upper and lower extremity weakness, detailed in the history, would not lik dominguez be explained by a single lesion in the posterior left thalamus. Mastoid air cells and visualized portions of the paranasal sinuses are clear. No acute bony findings. IMPRESSION: No intracranial hemorrhage is present. No acute cortical based infarction is identified . Patient has a 10 millimeter area in the left thalamus that is new from 2019. This is most likely an i schemic insult but the age is uncertain. History was bilateral upper and lower extremity weakness whi ch would not be explained by this single lesion. Patient has advanced for age atrophy and chronic ischemic change. This is similar to 2019. Chronic ischemic changes can mask nonhemorrhagic acute infarction. MR brain followup can be obtained if there is ongoing concern for acute ischemia.
[2021-09-21 15:30] LABS: Absolute Lymphocytes (CBC) 1.2 K/uL (0.7-4.9); Basophils % 0.9 % (0-1.3); Hematocrit 40.1 % (36.0-45.0); Lymphocytes % 23.3 % (15.3-44.8); MPV 7.7 fL (7.6-11.3); RBC Red Blood Cell Count 4.41 M/uL (3.86-4.86)
[2021-09-21 15:31] LABS: Protime INR 1.1
[2021-09-21 15:54] LABS: ALT/SGPT 18 U/L (12-78); AST/SGOT 8 U/L (15-37); Alkaline Phosphatase 96 U/L (45-117); BUN Blood Urea Nitrogen 15 mg/dL (7-18); Bicarbonate 25 mmol/L (21-32); Bilirubin Direct 0.2 mg/dL (0-0.2); Bilirubin Total 0.7 mg/dL (0.2-1.0); Glucose Level 89 mg/dL (74-106); Magnesium 2.4 mg/dL (1.8-2.4); NT PRO-BNP 58 pg/mL (<125); Potassium 3.1 mmol/L (3.5-5.1); Sodium Level 143 mmol/L (136-145); Troponin (Emerg Dept Use Only) < 0.02 ng/mL (0.0-0.045)
[2021-09-21] MEDS ORDERED: ONDANSETRON 4 MG/2 ML VIAL ONE (16:06)
[2021-09-21] MEDS ORDERED: MORPHINE 2 MG/ML SYR ONE (16:06)
--- NOTE | 2021-09-21 17:07 | EDPHYS ---
Physician Documentation [facility] Name: Erma Pham Age: 56 yrs Sex: Female : 1965 Arrival Date: 09/21/2021 Time: 13:38 Bed 17 Private MD: ED Physician Jose C Mendoza HPI: 09/21 14:36 This 56 yrs old Female presents to ER via Wheelchair with complaints of pm1 Numbness. 14:36 The patient presents to the emergency department with paresthesias of the left lower pm1 extremity, left upper extremity, right lower extremity, right upper extremity, pain to lower extremities bilaterally. Onset: The symptoms/episode began/occurred Patient reports difficulty with walking for the past two years with right leg dragging. Has complaints of numbness that has stocking and glove pattern. Upper extremity paresthesia for the past 3 weeks. Context: occurred at an unknown location. Associated signs and symptoms: Pertinent negatives: headache, chest pain, shortness of breath. Severity of symptoms: in the emergency department the symptoms are unchanged. The patient has not recently seen a physician. 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 - Social history:: Smoking status: Patient denies any tobacco usage or history of. ROS: 14:36 Constitutional: Negative for fever, chills, and weight loss, Cardiovascular: Negative pm1 for chest pain, palpitations, and edema, Respiratory: Negative for shortness of breath, cough, wheezing, and pleuritic chest pain, Abdomen/GI: Negative for abdominal pain, nausea, vomiting, diarrhea, and constipation, Back: Negative for injury and pain, MS/Extremity: Negative for injury and deformity, Skin: Negative for injury, rash, and discoloration. 14:36 Neuro: Positive for numbness, of the right arm, left arm, right leg and left leg, Negative for headache. 14:36 All other systems are negative. Exam: 14:36 Constitutional: This is a well developed, well nourished patient who is awake, alert, pm1 and in no acute distress. Head/Face: Normocephalic, atraumatic. 14:36 Neck: Trachea midline, no thyromegaly or masses palpated, and no cervical lymphadenopathy. Supple, full range of motion without nuchal rigidity, or vertebral point tenderness. No Meningismus. 14:36 Skin: Warm, dry with normal turgor. Normal color with no rashes, no lesions, and no evidence of cellulitis. 14:36 Eyes: Exam is negative for acute changes, Extraocular movements: no acute changes. 14:36 ENT: Exam is negative for acute changes, Mouth: no acute changes, Lips: normal, moist, Oral mucosa: normal, pink and intact, moist. 14:36 Cardiovascular: Exam negative for acute changes, Rate: normal, Rhythm: regular, Pulses: no pulse deficits are appreciated, Heart sounds: normal, normal S1and S2. 14:36 Respiratory: Exam negative for acute changes, respiratory distress, shortness of breath, Breath sounds: are clear throughout. 14:36 Abdomen/GI: Exam negative for acute changes, Inspection: abdomen appears normal, Palpation: abdomen is soft and non-tender, in all quadrants. 14:36 Musculoskeletal/extremity: Exam is negative for acute changes, the right arm, left arm, right leg and left leg Sensation intact. 14:36 Neuro: Orientation: is normal, Mentation: is normal, Cranial nerves: CN II- XII are normal as tested, Cerebellar function: normal finger to nose testing, Motor: moves all fours, strength is 5/5 in the right arm, left arm and left leg, Strength is 3/5 in the right leg, right leg baseline strength for the past 2 years per patient and family. Vital Signs: 14:08 BP 150 / 73; Pulse 63; Resp 18; Temp 98.2; Pulse Ox 100% ; Weight 65 kg; Height 5 ft. 2 vg1 in. (157.48 cm); Pain 0/10; 14:30 BP 132 / 78; Pulse 62; Resp 18; Temp 98.3; Pulse Ox 100% ; sl2 16:20 BP 134 / 83; Pulse 59; Resp 14; Pulse Ox 99% on R/A; mh5 17:00 BP 130 / 73; Pulse 64; Resp 18; Temp 98; Pulse Ox 99% on R/A; sl2 18:00 BP 112 / 73; Pulse 68; Resp 18; Temp 98.2(O); Pulse Ox 97% on R/A; sl2 14:08 Body Mass Index 26.21 (65.00 kg, 157.48 cm) vg1 MDM: 14:22 Patient medically screened. pm1 17:05 Data reviewed: vital signs. Data interpreted: Pulse oximetry: on room air is 99 %. pm1 Interpretation: normal. Counseling: I had a detailed discussion with the patient and/or guardian regarding: the historical points, exam findings, and any diagnostic results supporting the discharge/admit diagnosis, lab results, radiology results, the need for outpatient follow up, a neurologist, to return to the emergency department if symptoms worsen or persist or if there are any questions or concerns that arise at home. 18:14 ED course: Patient showed issues with walking and it appears that her issue is her pm1 right knee. Right knee appears to buckle backwards and is painful with palpation. Discussed examination and workup findings with her son on the phone. No indication for DVT and U/S since no swelling is present to legs bilaterally. Tenderness to right knee anteriorly and with flexion. Pain and numbness to upper and lower extremity has stocking and glove pattern. Impression is peripheral neuropathy to all four extremities. Follow up recommended with orthopedics and neurology. 09/21 14:34 Order name: Basic Metabolic Panel; Complete Time: 16:01 pm1 09/21 14:34 Order name: CBC with Diff; Complete Time: 15:50 pm1 09/21 14:34 Order name: LFT's; Complete Time: 16:01 pm1 09/21 14:34 Order name: Magnesium; Complete Time: 16:01 pm1 09/21 14:34 Order name: NT PRO-BNP; Complete Time: 16:01 pm1 09/21 14:34 Order name: PT-INR; Complete Time: 15:50 pm1 09/21 14:34 Order name: Troponin (emerg Dept Use Only); Complete Time: 16:01 pm1 09/21 14:34 Order name: XRAY Chest (1 view); Complete Time: 15:50 pm1 09/21 14:34 Order name: EKG; Complete Time: 14:35 pm1 09/21 14:34 Order name: CT Head Brain wo Cont; Complete Time: 15:50 pm1 09/21 14:34 Order name: Cardiac monitoring; Complete Time: 16:13 pm1 09/21 14:34 Order name: EKG - Nurse/Tech; Complete Time: 16:13 pm1 09/21 14:34 Order name: IV Saline Lock; Complete Time: 16:01 pm1 09/21 14:34 Order name: Labs collected and sent; Complete Time: 16:01 pm1 09/21 14:34 Order name: O2 Per Protocol; Complete Time: 16:01 pm1 09/21 14:34 Order name: O2 Sat Monitoring; Complete Time: 16:01 pm1 Administered Medications: 16:12 Drug: morphine 2 mg Route: IVP; Site: right antecubital; jd3 17:56 Follow up: Response: No adverse reaction sl2 16:12 Drug: Zofran (Ondansetron) 4 mg Route: IVP; Site: right antecubital; jd3 17:56 Follow up: Response: No adverse reaction sl2 17:35 Drug: Potassium Chloride 40 mEq Route: PO; sl2 17:56 Follow up: Response: No adverse reaction sl2 17:35 Drug: traMADol 50 mg Route: PO; sl2 17:56 Follow up: Response: No adverse reaction sl2 Disposition: 18:58 Co-signature as Attending Physician, Jose C Mendoza MD I agree with the assessment and rn plan of care. Attestation: The patient's history, exam findings, diagnostics, and a summary of any interventions or procedures was reviewed in detail with Anupam Naylor NP. Disposition Summary: 09/21/21 17:07 Discharge Ordered Location: Home pm1 Problem: new pm1 Symptoms: have improved pm1 Condition: Stable pm1 Diagnosis - Paresthesia of skin pm1 Followup: pm1 - With: Emergency Department - When: As needed - Reason: Worsening of condition Followup: pm1 - With: Private Physician - When: 2 - 3 days - Reason: Recheck today's complaints, Continuance of care, Re-evaluation by your physician Discharge Instructions: - Discharge Summary Sheet pm1 - Neuropathic Pain pm1 - Paresthesia pm1 Forms: - Medication Reconciliation Form pm1 - Thank You Letter pm1 - Antibiotic Education pm1 - Prescription Opioid Use pm1 Prescriptions: - Tramadol 50 mg Oral Tablet - take 1 tablet by ORAL route every 8 hours as needed; 12 tablet; Refills: 0, pm1 Product Selection Permitted Signatures: Dispatcher [employer] Jose C Jessica MD MD rn Anupam Naylor, [employer]HA [employer]CH[employer] pm1 Parmjit Khanna, RN RN jd3 Vandana Billings RN RN vg1 Blanquita An RN RN sl2
--- NOTE | 2021-09-21 17:07 | ER ---
Nurse's Notes [facility] Name: Erma Pham Age: 56 yrs Sex: Female : 1965 Arrival Date: 09/21/2021 Time: 13:38 Bed 17 Private MD: Diagnosis: Paresthesia of skin Presentation: 09/21 14:08 Chief complaint: Patient states: States having trouble walking with walker. Patient's vg1 son or daughter states: "For years has been dealing with swelling in RAMON legs. Right now the Right leg is swollen and Right arm feels numb." Right arm numbness began 4-5 days ago. Coronavirus screen: Vaccine status: Patient reports receiving the 2nd dose of the covid vaccine. Client denies travel out of the [place] in the last 14 days. Ebola Screen: Patient negative for fever greater than or equal to 101.5 degrees Fahrenheit, and additional compatible Ebola Virus Disease symptoms. Initial Sepsis Screen: Does the patient meet any 2 criteria? No. Patient's initial sepsis screen is negative. Does the patient have a suspected source of infection? No. Patient's initial sepsis screen is negative. Risk Assessment: Do you want to hurt yourself or someone else? Patient reports no desire to harm self or others. Onset of symptoms was September 16, 2021. 14:08 Method Of Arrival: Wheelchair vg1 14:08 Acuity: JUSTIN 3 vg1 Triage Assessment: 14:14 General: Appears in no apparent distress. uncomfortable, Behavior is calm, cooperative. vg1 Pain: Complains of pain in right arm, right leg and left leg Pain currently is 10 out of 10 on a pain scale. Neuro: Level of Consciousness is awake, alert, obeys commands, Oriented to person, place, time, situation, [place] are equal bilaterally Moves all extremities. Gait is unsteady, Speech is normal, Facial symmetry appears normal. 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 - Social history:: Smoking status: Patient denies any tobacco usage or history of. Screenin:30 Abuse screen: Denies threats or abuse. Abuse screen: Denies injuries from another. sl2 Nutritional screening: No deficits noted. Tuberculosis screening: No symptoms or risk factors identified. Fall Risk No fall in past 12 months (0 pts). No secondary diagnosis (0 pts). No IV (0 pts). Ambulatory Aid- Crutches/Cane/Walker (15 pts). Gait- Impaired (20 pts.). Mental Status- Oriented to own ability (0 pts). Total Anglin Fall Scale indicates Low Risk Score (25-44 pts). Side Rails Up X 2 Placed close to Nursing Station 1:1 attendant Assigned to Pt. Frequent Obs/Assesments occuring Family Present and informed to notify staff if they need to leave bedside. 14:30 Fall Risk Total Anglin Fall Scale indicates Low Risk Score (25-44 pts). Fall prevention sl2 measures have been instituted. Side Rails Up X 2 Placed close to Nursing Station Frequent Obs/Assesments occuring Family Present and informed to notify staff if they need to leave bedside. Assessment: 14:30 General: Appears in no apparent distress. well groomed, well developed. sl2 14:30 Pain: Complains of pain in left arm and left leg and right leg and right arm. Neuro: No sl2 deficits noted. Level of Consciousness is awake, alert, obeys commands, Oriented to person, place, time, situation, Appropriate for age. Cardiovascular: No deficits noted. Respiratory: No deficits noted. Airway is patent Trachea midline Respiratory effort is even, unlabored, Respiratory pattern is regular, symmetrical. GI: No deficits noted. No signs and/or symptoms were reported involving the gastrointestinal system. : No deficits noted. No signs and/or symptoms were reported regarding the genitourinary system. EENT: No deficits noted. No signs and/or symptoms were reported regarding the EENT system. Derm: No deficits noted. No signs and/or symptoms reported regarding the dermatologic system. Musculoskeletal: Reports pain in left arm and left leg and right leg and right arm. 18:03 Reassessment: Patient's family requesting further elaboration on discharge instruction sl2 and follow up care, EDP Anupam Naylor present at bedside to repeat discharge instructions with patient and family. Vital Signs: 14:08 BP 150 / 73; Pulse 63; Resp 18; Temp 98.2; Pulse Ox 100% ; Weight 65 kg; Height 5 ft. 2 vg1 in. (157.48 cm); Pain 0/10; 14:30 BP 132 / 78; Pulse 62; Resp 18; Temp 98.3; Pulse Ox 100% ; sl2 16:20 BP 134 / 83; Pulse 59; Resp 14; Pulse Ox 99% on R/A; mh5 17:00 BP 130 / 73; Pulse 64; Resp 18; Temp 98; Pulse Ox 99% on R/A; sl2 18:00 BP 112 / 73; Pulse 68; Resp 18; Temp 98.2(O); Pulse Ox 97% on R/A; sl2 14:08 Body Mass Index 26.21 (65.00 kg, 157.48 cm) vg1 ED Course: 13:38 Patient arrived in ED. ds1 14:14 Triage completed. vg1 14:14 Arm band placed on. vg1 14:21 Anupam Naylor NP is PHCP. pm1 14:21 Jose C Mendoza MD is Attending Physician. pm1 14:56 CT Head Brain wo Cont In Process Unspecified. EDMS 15:02 XRAY Chest (1 view) In Process Unspecified. EDMS 16:17 Patient has correct armband on for positive identification. Placed in gown. Bed in low mh5 position. Call light in reach. Side rails up X2. Adult w/ patient. Warm blanket given. property assessment monitor on. Pulse ox on. NIBP on. 16:17 Initial lab(s) drawn, by me, sent to lab. EKG done, by ED staff, reviewed by Anupam Naylor NP. Inserted saline lock: 22 gauge in right antecubital area, using aseptic technique. Blood collected. 17:30 Blanquita An, RN is Primary Nurse. sl2 18:01 No provider procedures requiring assistance completed. sl2 18:17 IV discontinued, intact, bleeding controlled, No redness/swelling at site. Pressure sl2 dressing applied. Administered Medications: 16:12 Drug: morphine 2 mg Route: IVP; Site: right antecubital; jd3 17:56 Follow up: Response: No adverse reaction sl2 16:12 Drug: Zofran (Ondansetron) 4 mg Route: IVP; Site: right antecubital; jd3 17:56 Follow up: Response: No adverse reaction sl2 17:35 Drug: Potassium Chloride 40 mEq Route: PO; sl2 17:56 Follow up: Response: No adverse reaction sl2 17:35 Drug: traMADol 50 mg Route: PO; sl2 17:56 Follow up: Response: No adverse reaction sl2 Outcome: 17:07 Discharge ordered by . pm1 18:17 Discharged to home via wheelchair, with family. 2 18:17 Condition: stable 18:17 Discharge instructions given to patient, family, Instructed on discharge instructions, follow up and referral plans. medication usage, Demonstrated understanding of instructions, follow-up care, medications, Prescriptions given X 1. 18:34 Patient left the ED. as6 Signatures: Dispatcher [employer] EDAK Heather Prabhakar dsAnupam Montes, RADHA MEAT CUTTER APPRENTICE pm1 Helena Pisano Jonathon, RN RN Vandana Hernadez RN RN vg1 Blanquita An RN RN sl2 Talat Payne RN RN as6
[2021-09-21] MEDS ORDERED: POTASSIUM CL SA 10 MEQ TAB PO ONE (17:44)
[2021-09-21] MEDS ORDERED: TRAMADOL HCL 50 MG TAB ONE (17:45)
[2021-09-21 19:04] VITALS: BP 112/73; TEMP 98.2; O2SAT 97
--- NOTE | 2021-09-24 08:11 | EKG ---
Test Date: 2021-09-21 Test Time: 16:11:41 Cardiac Technician: TEODORA MEASUREMENT RESULTS: Intervals: Rate: 56 CO: 150 QRSD: 84 QT: 460 QTc: 443 [place]: P: 45 CO: 150 QRS: 61 T: -13 INTERPRETIVE STATEMENTS: Sinus bradycardia Nonspecific ST and T wave abnormality Abnormal ECG Compared to ECG 04/05/2019 02:44:15 Sinus rhythm no longer present Left posterior fascicular block no longer present Possible ischemia no longer present ST (T wave) deviation still present Electronically Signed On 09-24-21 08:04:11 HEALTH INFORMATION MANAGER by Chava Last
== END 2021-09-21 18:34 | disposition home or self-care (01) ==
LOC: ER 13:36
DX: R20.2 Paresthesia of skin (principal)
CPT/HCPCS: 93005; 85025; 80048; 36415; 83735; 85610; 80076; 84484; 83880; 70450; 71045; 96375; 96374; 99285; J2270; J2405

== ENCOUNTER 2023-04-01 23:30 | Emergency (ER) | payer OTHER ==
--- OUTSIDE RECORDS SUMMARY | 2023-04-01 23:33 | XMS REPORT | Continuity of Care Document ---
:1965 Author Organization [facility] t Address [address] [facility] [address] [place] [id number] Care Team Providers Name Role Phone Provider, Unknown Primary Care Physician Unavailable [id number] Attending Clinician Unavailable Asked, No Pcp Attending Clinician Unavailable ALE PARADA NATASHA Attending Clinician Unavailable TAWANA ROADS Attending Clinician Unavailable MD DEWEY QUINN Attending Clinician Unavailable [id number] Admitting Clinician Unavailable ALE PARADA NATASHA Admitting Clinician Unavailable DEWEY QUINN Admitting Clinician Unavailable MD DEWEY QUINN Admitting Clinician Unavailable Payers Payer Name Policy Type Policy Number Effective Date Expiration Date S yue SUPZ SUPZ [id number] Problems Condition Condition Condition Status Onset Resolution Last Treating Co mments Source Name Details Category Date Date Treatment Clinician Date MS MS Disease Active 2020-11 [facility] (multiple (multiple 2-12 st sclerosis) sclerosis) 00:00: Ho spita 00 l Multiple Multiple Disease Active 2020-11 Meth[facility] di sclerosis sclerosis [facility] st 00:00: [facility]osp[facility] 00 l Weakness Weakness Disease Active 2020-11 Metho di [facility] 00:00: Hospita 00 l Allergies, Adverse Reactions, Alerts This patient has no known allergies or adverse reactions. Social History Social Habit Start Date Stop Date Quantity Comments Source Gender identity [facility] Sexual orientation [facility] of Social 2021-10-23 2021-10-23 [facility] function 00:00:00 00:00:00 Sex Assigned At [birth year] [facility] 00:00:00 00:00:00 Smoking Status Start Date Stop Date Source Tobacco smoking consumption unknown [facility] Medications Ordered Filled Start Stop Current Ordering Indication Dosage Frequency Signature Comments Components Source Medication Medication Date Date Medication? Clinician (SIG) Name Name enoxaparin 2020-11 Yes 40mg QD Inject 0.4 M ethodi (LOVENOX) 2-24 mL ([address] 40 mg/0.4 00:00: total) Hospit a mL syringe 00 under the l skin daily. Procedures This patient has no known procedures. Plan of Care Planned Activity Planned Date Details Comments Source Future Scheduled 2023-03-22 Hepatitis C screening [facility] Test 15:30:03 (procedure) [code = 047516643] Future Scheduled 2023-03-22 Screening for [facility] Test 15:30:03 malignant neoplasm of cervix (procedure) [code = 913084475] Future Scheduled 2023-03-22 BREAST CANCER [facility] Test 15:30:03 SCREENING [code = BREAST CANCER SCREENING] Future Scheduled 2023-03-22 COLONOSCOPY SCREENING [facility] Test 15:30:03 [code = COLONOSCOPY SCREENING] Future Scheduled 2023-03-22 SHINGLES VACCINES ([address] [facility] Test 15:30:03 of 2) [code = SHINGLES VACCINES (1 of 2)] Future Scheduled 2023-03-22 COVID-19 VACCINE (3 - [facility] Test 15:30:03 Booster for Moderna series) [code = COVID-19 VACCINE (3 - Booster for Moderna series)] Future Scheduled 2023-03-22 INFLUENZA VACCINE Method [facility] Test 15:30:03 [code = INFLUENZA VACCINE] Encounters Start End Encounter Admission Attending Care Care Encounter Source Date/Time Date/Time Type Type Clinicians Facility Department ID 2021-11-27 Outpatient 3 [id number] [facility] RE[facility] [id number] [facility] 13:33:13 [facility] [place] 2023-03-22 2023-03-22 Telephone Asked, No [id number] [facility] 00:00:00 00:00:[id number] [id number] Hospit [id number] .[id number] l .8 2021-10-24 2021-11-07 Inpatient 3 KARMAEDUARDAPL MEET [id number] 21 [facility] 17:40:00 09:30:00 [facility] [place] 2021-10-10 2021-10-24 Inpatient ADRIANNA [facility] [id number] [address] [place] 00:00:00 00:00:00 TAWANA Reich Method i st Results Test Description Test Time Test Comments Results Result Comments Source SARS-CoV-2 (COVID-19) RNA [Presence] in Respiratory sp ecimen by 2021-10-11 06:15:15 JASWANT with probe detection Test Item Value Reference Range Interpretation Comme nts SARS-CoV-2 (COVID-19) RNA [Presence] in Respiratory Not detected No t-Detected specimen by JASWANT with probe detection (test code = 59842-4) Whether patient is employed in a healthcare setting (test code = 24949-0) Whether the patient has symptoms related to condition of interest (test code = 02808-0) Patient was hospitalized because of this condition (test code = 23670-2) Whether the patient was admitted to intensive care unit (ICU) for condition of interest (test code = 19016-5) Whether patient resides in a congregate care setting (test code = 57094-0) PREET REYES
[2023-04-02] MEDS ORDERED: ONDANSETRON 4 MG/2 ML VIAL ONE (00:22)
[2023-04-02 00:53] LABS: Absolute Lymphocytes (CBC) 1.5 K/uL (0.7-4.9); Hematocrit 40.5 % (36.0-45.0); Lymphocytes % 22.4 % (15.3-44.8); MCV 92.7 fL (80-100); MPV 7.5 fL (7.6-11.3); RBC Red Blood Cell Count 4.37 M/uL (3.86-4.86)
[2023-04-02 01:16] LABS: ALT/SGPT 23 U/L (13-56); Albumin 3.7 g/dL (3.4-5.0); Alkaline Phosphatase 116 U/L (45-117); BUN Blood Urea Nitrogen 13 mg/dL (7-18); Bicarbonate 25 mEq/L (21-32); Bilirubin Total 0.4 mg/dL (0.2-1.0); Glomerular Filtration Rate 98 ml/min (=/>90); Glucose Level 98 mg/dL (74-106); Lipase 32 U/L (13-75); Protein, Total 7.6 g/dL (6.4-8.2); Sodium Level 138 mEq/L (136-145); Troponin High Sensitivity 10.2 pg/mL (<58.9)
[2023-04-02 01:17] LABS: AST/SGOT 11 U/L (15-37); Bilirubin Direct < 0.1 mg/dL (0-0.2); Bilirubin Indirect, Calculated ND mg/dL (0.2-0.8); Magnesium 2.3 mg/dL (1.6-2.4); Potassium 4.2 mEq/L (3.5-5.1)
[2023-04-02 04:21] LABS: Specific Gravity > 1.030 (1.005-1.030); Urine Bacteria 20-50 /HPF (<20); Urine Bilirubin NEGATIVE (Negative); Urine Blood Trace (Negative); Urine Clarity Turbid (Clear); Urine Color Colorless (Yellow); Urine Glucose NEGATIVE (Negative); Urine Mucus Slight /HPF (None Seen); Urine Protein TRACE (Negative); Urine RBC <5 /HPF (None Seen); Urine Urobilinogen Normal (Normal); Urine pH 7.5 (5.0-7.0)
--- NOTE | 2023-04-02 04:33 | ER ---
Nurse's Notes [facility] Name: Erma Pham Age: 57 yrs Sex: Female : 1965 Arrival Date: 04/01/2023 Time: 23:30 Bed 7 Private MD: Diagnosis: UTI/ Urinary tract infection, site not specified;Dizziness and giddiness;Nausea Presentation: 04/01 23:49 Chief complaint: Patient states: right sided abdominal pain starting yesterday with lg3 nausea. denies vomiting. Coronavirus screen: Client denies travel out of the [place] in the last 14 days. At this time, the client does not indicate any symptoms associated with coronavirus-19. Ebola Screen: No symptoms or risks identified at this time. Initial Sepsis Screen: Does the patient meet any 2 criteria? No. Patient's initial sepsis screen is negative. Does the patient have a suspected source of infection? No. Patient's initial sepsis screen is negative. Risk Assessment: Do you want to hurt yourself or someone else? Patient reports no desire to harm self or others. Onset of symptoms was March 31, 2023. 23:49 Method Of Arrival: Wheelchair lg3 23:49 Acuity: JUSTIN 3 lg3 Triage Assessment: 23:53 General: Appears in no apparent distress. comfortable, Behavior is calm, cooperative. lg3 Pain: Complains of pain in right upper quadrant and right lower quadrant. EENT: No deficits noted. No signs and/or symptoms were reported regarding the EENT system. Neuro: No deficits noted. Santos Agitation-Sedation Scale (RASS): 0 - Alert and Calm Level of Consciousness is awake, alert, obeys commands, Oriented to person, place, time, situation. Cardiovascular: No deficits noted. Denies chest pain, shortness of breath. Respiratory: No deficits noted. Airway is patent Respiratory effort is even, unlabored, Respiratory pattern is regular, symmetrical. GI: Reports lower abdominal pain, upper abdominal pain, cramping, nausea. : No deficits noted. No signs and/or symptoms were reported regarding the genitourinary system. Derm: No deficits noted. No signs and/or symptoms reported regarding the dermatologic system. Skin is intact, is healthy with good turgor, Skin is dry, Skin is normal, Skin temperature is warm. Musculoskeletal: No deficits noted. No signs and/or symptoms reported regarding the musculoskeletal system. Circulation, motion, and sensation intact. Range of motion: intact in all extremities. Historical: - Allergies: 23:53 No Known Allergies; lg3 - Home Meds: 23:53 None [Active]; lg3 - PMHx: 23:53 Multiple sclerosis; lg3 - PSHx: 23:53 None; lg3 - Immunization history:: Adult Immunizations up to date, Client reports receiving the 2nd dose of the Covid vaccine. - Social history:: Smoking status: Patient reports the use of cigarette tobacco products, denies chronic smoking, but will smoke occasionally, Patient/guardian denies using alcohol, street drugs. Screenin/02 04:54 [facility] ED Fall Risk Assessment (Adult) History of falling in the last 3 months, rv including since admission No falls in past 3 months (0 pts). Abuse screen: Denies threats or abuse. Denies injuries from another. Nutritional screening: No deficits noted. Tuberculosis screening: No symptoms or risk factors identified. Assessment: 01:05 Reassessment: Patient appears in no apparent distress at this time. Patient and/or jb4 family updated on plan of care and expected duration. Pain level reassessed. Patient is alert, oriented x 3, equal unlabored respirations, skin warm/dry/pink. 02:00 Reassessment: Patient appears in no apparent distress at this time. Patient and/or jb4 family updated on plan of care and expected duration. Pain level reassessed. Patient is alert, oriented x 3, equal unlabored respirations, skin warm/dry/pink. 03:00 Reassessment: Patient appears in no apparent distress at this time. Patient and/or jb4 family updated on plan of care and expected duration. Pain level reassessed. Patient is alert, oriented x 3, equal unlabored respirations, skin warm/dry/pink. 04:00 Reassessment: Patient appears in no apparent distress at this time. Patient and/or jb4 family updated on plan of care and expected duration. Pain level reassessed. Patient is alert, oriented x 3, equal unlabored respirations, skin warm/dry/pink. Vital Signs: 04/01 23:49 BP 156 / 86; Pulse 63; Resp 18 S; Temp 98.9(O); Pulse Ox 98% on R/A; Weight 72.57 kg lg3 (R); Height 5 ft. 1 in. (R); 04/02 01:00 BP 147 / 83; Pulse 64; Resp 16; Pulse Ox 97% on R/A; jb4 02:30 BP 136 / 71; Pulse 66; Resp 16; Pulse Ox 98% on R/A; jb4 03:55 BP 134 / 86; Pulse 67; Resp 18; Pulse Ox 97% on R/A; jb4 04:54 BP 131 / 86; Pulse 68; Resp 16; Temp 98; Pulse Ox 100% on R/A; rv 04/01 23:49 Body Mass Index 30.23 (72.57 kg, 154.94 cm) lg3 ED Course: 04/01 23:32 Patient arrived in ED. jj6 23:45 Rojas Whelan PA is PHCP. cp 23:45 Rojas Brown MD is Attending Physician. cp 23:53 Triage completed. lg3 23:53 Arm band placed on right wrist. lg3 04/02 00:18 Ant Solano, RN is Primary Nurse. jb4 00:50 XRAY Chest (1 view) In Process Unspecified. EDMS 01:00 No provider procedures requiring assistance completed. rv 01:40 US Abdomen Limited: gallbladder In Process Unspecified. EDMS 03:26 CT Head Brain wo Cont In Process Unspecified. EDMS 03:27 CT Abd/Pelvis - IV Contrast Only In Process Unspecified. EDMS 04:55 Patient has correct armband on for positive identification. rv 04:55 Inserted saline lock: 20 gauge in right antecubital area, using aseptic technique. rv Blood collected. IV discontinued, intact, bleeding controlled, No redness/swelling at site. Pressure dressing applied. Administered Medications: 00:40 Drug: Ondansetron IVP 4 mg Route: IVP; Site: right antecubital; jb4 04:54 Follow up: Response: No adverse reaction rv 04:45 Drug: Rocephin IV 1 grams Route: IV; Rate: per protocol; Site: right antecubital; rv 04:53 Follow up: Response: Medication administered at discharge. rv 04:53 Follow up: IV Status: Completed infusion rv 04:45 Drug: Ciprofloxacin PO 500 mg Route: PO; rv 04:54 Follow up: Response: Medication administered at discharge. rv Medication: 04:55 VIS not applicable for this client. rv Outcome: 04:33 Discharge ordered by MD. baird 04:55 Patient left the ED. rv Signatures: Dispatcher [employer] EDRojas Harris MD MD cha Page, Corey, PA PA cp Bryson, James, RN RN jb4 Alfonzo Anne RN RN rv Hilaria Kilpatrick RN RN lg3 Holly Montalvoj6 Corrections: (The following items were deleted from the chart) 04/01 23:54 23:53 Home Meds: Advil Oral; lg3 lg3
--- NOTE | 2023-04-02 04:34 | EDPHYS ---
Physician Documentation [facility] Name: Erma Pham Age: 57 yrs Sex: Female : 1965 Arrival Date: 04/01/2023 Time: 23:30 Bed 7 Private MD: ED Physician Rojas Brown HPI: 04/01 23:45 This 57 yrs old Female presents to ER via Unassigned with complaints of cp Nausea, Dizziness, Abdominal Pain. 23:45 The patient presents with abdominal pain in the right upper quadrant. cp 23:45 Onset: The symptoms/episode began/occurred yesterday. cp 23:45 The patient presents to the emergency department with nausea, that is mild, abdominal cp pain, of the right upper quadrant and right lower quadrant. 23:45 Onset: The symptoms/episode began/occurred yesterday, and became worse today. cp Associated signs and symptoms: Pertinent positives: dizziness, Pertinent negatives: constipation, diarrhea, fever, chest pain. Historical: - Allergies: 23:53 No Known Allergies; lg3 - Home Meds: 23:53 None [Active]; lg3 - PMHx: 23:53 Multiple sclerosis; lg3 - PSHx: 23:53 None; lg3 - Immunization history:: Adult Immunizations up to date, Client reports receiving the 2nd dose of the Covid vaccine. - Social history:: Smoking status: Patient reports the use of cigarette tobacco products, denies chronic smoking, but will smoke occasionally, Patient/guardian denies using alcohol, street drugs. ROS: 23:50 Constitutional: Negative for body aches, chills, fever, poor PO intake. cp 23:50 Cardiovascular: Negative for chest pain, edema, palpitations. cp 23:50 Respiratory: Negative for cough, wheezing. 23:50 Abdomen/GI: Positive for abdominal pain, nausea, of the right upper quadrant and right mid abdomen, Negative for diarrhea, constipation. 23:50 : Negative for urinary symptoms. 23:50 Neuro: Positive for dizziness, Negative for altered mental status, numbness, weakness. 23:50 All other systems are negative. Exam: 23:55 Constitutional: The patient appears in no acute distress, alert, awake, cp non-diaphoretic, non-toxic, well developed, well nourished. 23:55 Head/Face: Normocephalic, atraumatic. cp 23:55 Eyes: Periorbital structures: appear normal, Conjunctiva: normal, no exudate, no injection, Sclera: no appreciated abnormality, Lids and lashes: appear normal, bilaterally. 23:55 ENT: External ear(s): are unremarkable, Nose: is normal, Mouth: Lips: moist, Oral mucosa: pink and intact, moist, Posterior pharynx: is normal, airway is patent, no erythema, no exudate. 23:55 Chest/axilla: Inspection: normal. 23:55 Cardiovascular: Rate: normal, Rhythm: regular, Edema: is not appreciated, JVD: is not appreciated. 23:55 Respiratory: the patient does not display signs of respiratory distress, Respirations: normal, no use of accessory muscles, no retractions, labored breathing, is not present, Breath sounds: are clear throughout, no decreased breath sounds, no stridor, no wheezing. 23:55 Abdomen/GI: Inspection: obese Bowel sounds: active, all quadrants, Palpation: soft, in all quadrants, moderate abdominal tenderness, in the right upper quadrant and right mid abdomen, rebound tenderness, is not appreciated, voluntary guarding, is elicited in the right upper quadrant and right mid abdomen. 23:55 Back: CVA tenderness, is absent. 23:55 Neuro: Orientation: to person, place \T\ time. Mentation: is normal. 04/02 00:37 ECG was reviewed by the Attending Physician. cp Vital Signs: 04/01 23:49 BP 156 / 86; Pulse 63; Resp 18 S; Temp 98.9(O); Pulse Ox 98% on R/A; Weight 72.57 kg lg3 (R); Height 5 ft. 1 in. (R); 04/02 01:00 BP 147 / 83; Pulse 64; Resp 16; Pulse Ox 97% on R/A; jb4 02:30 BP 136 / 71; Pulse 66; Resp 16; Pulse Ox 98% on R/A; jb4 03:55 BP 134 / 86; Pulse 67; Resp 18; Pulse Ox 97% on R/A; jb4 04:54 BP 131 / 86; Pulse 68; Resp 16; Temp 98; Pulse Ox 100% on R/A; rv 04/01 23:49 Body Mass Index 30.23 (72.57 kg, 154.94 cm) lg3 MDM: 04/01 23:56 Patient medically screened. cp 04/02 01:00 Differential diagnosis: pancreatitis, appendicitis, gastroenteritis, bowel obstruction, cp gastritis, non-specific abd pain, Pyelonephritis, Ureterolithiasis, urinary tract infection, choledocholithiasis. 04/01 23:47 Order name: Basic Metabolic Panel; Complete Time: 01:33 cp /02 01:33 Interpretation: Normal except: CL 110. cp 04/01 23:47 Order name: CBC with Diff; Complete Time: 01:33 cp 04/02 01:33 Interpretation: Normal except: MPV 7.5. cp 04/01 23:47 Order name: LFT's; Complete Time: 01:33 cp / 01:33 Interpretation: Normal except: AST 11; GLOB 3.9; A/G 0.9. cp 04/01 23:47 Order name: Magnesium; Complete Time: 01:33 cp 04/01 23:47 Order name: Troponin HS; Complete Time: 01:33 cp 04/01 23:47 Order name: Lipase; Complete Time: 01:33 cp 04/01 23:47 Order name: Urinalysis W/Microscopic; Complete Time: 04:29 cp 04/01 23:47 Order name: XRAY Chest (1 view) cp 04/02 01:09 Order name: US Abdomen Limited: gallbladder cp 04/02 01:34 Order name: CT Head Brain wo Cont cp 04/02 01:34 Order name: CT Abd/Pelvis - IV Contrast Only cp 04/01 23:47 Order name: EKG; Complete Time: 23:48 cp 04/01 23:47 Order name: Cardiac monitoring; Complete Time: 00:41 cp 04/01 23:47 Order name: EKG - Nurse/Tech; Complete Time: 00:41 cp 04/01 23:47 Order name: IV Saline Lock; Complete Time: 00:41 cp 04/01 23:47 Order name: Labs collected and sent; Complete Time: 00:41 cp 04/01 23:47 Order name: O2 Per Protocol; Complete Time: 00:41 cp 04/01 23:47 Order name: O2 Sat Monitoring; Complete Time: 00:41 cp EC:37 Rate is 63 beats/min. Rhythm is regular. ND interval is normal. QRS interval is normal. cp QT interval is normal. T waves are Inverted in lead aVR. Interpreted by me. Reviewed by me. Administered Medications: 00:40 Drug: Ondansetron IVP 4 mg Route: IVP; Site: right antecubital; jb4 04:54 Follow up: Response: No adverse reaction rv 04:45 Drug: Rocephin IV 1 grams Route: IV; Rate: per protocol; Site: right antecubital; rv 04:53 Follow up: Response: Medication administered at discharge. rv 04:53 Follow up: IV Status: Completed infusion rv 04:45 Drug: Ciprofloxacin PO 500 mg Route: PO; rv 04:54 Follow up: Response: Medication administered at discharge. rv Disposition Summary: 04/02/23 04:33 Discharge Ordered Location: Home oli Problem: new oli Symptoms: have improved oli Condition: Stable oli Diagnosis - UTI/ Urinary tract infection, site not specified oli - Dizziness and giddiness oli - Nausea oli Followup: oli - With: Private Physician - When: 2 - 3 days - Reason: Recheck today's complaints, Continuance of care, Re-evaluation by your physician Discharge Instructions: - Discharge Summary Sheet oli - Dizziness oli - Dysuria oli - Nausea, Adult oli - Urinary Tract Infection, Adult oli Forms: - Medication Reconciliation Form oli - Thank You Letter oli - Antibiotic Education oli - Prescription Opioid Use oli Prescriptions: - Cipro 250 mg Oral Tablet - take 1 tablet by ORAL route every 12 hours; 14 tablet; Refills: 0, Product oli Selection Permitted - Zofran 4 mg Oral Tablet - take 1 tablet by ORAL route every 12 hours As needed; 20 tablet; Refills: 0, oli Product Selection Permitted Signatures: Dispatcher [employer] EDRojas Harris MD MD cha Page, Corey, PA PA cp Bryson, James RN RN jb4 Alfonzo Anne RN RN Hilaria Lomeli RN RN lg3 Corrections: (The following items were deleted from the chart) 04/01 23:54 23:53 Home Meds: Advil Oral; lg3 lg3
[2023-04-02] MEDS ORDERED: CIPROFLOXACIN HCL 500 MG TAB ONE (04:43)
[2023-04-02] MEDS ORDERED: CEFTRIAXONE 1000 MG/VIAL ONE (04:43)
[2023-04-02 05:25] VITALS: BP 131/86; TEMP 98; O2SAT 100
--- NOTE | 2023-04-02 11:15 | RAD REPORT ---
EXAM DESCRIPTION: US - Abdomen Exam Limited - 04/02/2023 1:38 am CLINICAL HISTORY: ABD PAIN TECHNIQUE: Real-time ultrasound of the right upper quadrant with image documentation. COMPARISON: No relevant prior studies available. FINDINGS: Liver: The liver measures 15.3 cm in length. Homogeneous echotexture. No intrahepati c bile duct dilation. Gallbladder: Prior cholecystectomy. Common bile duct: Unremarkable as visualized. No stones. No dilation. Pancreas: Unremarkable as visualized. Right kidney: Unremarkable. No stones. No solid mass. No hydronephrosis. Spleen: The spleen measures 7.6 cm. Homogeneous echotexture. IMPRESSION: No focal abnormality. Electronically signed by: Vinicius Dubose MD 04/02/2023 2:12 AM CDT Due to temporary technical issues with the PACS/Fluency reporting system, reports are being signed by the in house radiologist without review as a courtesy to ensure prompt reporting. The interpreting r adiologist is fully responsible for the content of the report.
--- NOTE | 2023-04-02 12:28 | RAD REPORT ---
EXAM DESCRIPTION: CT - Abdomen Pelvis W Contrast - 04/02/2023 5:21 am CLINICAL HISTORY: The patient is 57 years old and is Female; ABD PAIN TECHNIQUE: Axial computed tomography images of the abdomen and pelvis with intravenous contrast. S agittal and coronal reformatted images were created and reviewed. This CT exam was performed using one or more of the following dose reduction techniques: automated exposure control, adjustment of t he mA and/or kV according to patient size, and/or use of iterative reconstruction technique. COMPARISON: No relevant prior studies available. FINDINGS: Lung bases: Unremarkable. No mass. No consolidation. ABDOMEN: Liver: Unremarkable. No mass. Gallbladder and bile ducts: Cholecystectomy without biliary dilatation. Pancreas: No findings to suggest acute pancreatitis. No mass visualized. No ductal dilation. Spleen: Unremarkable. No splenomegaly. Adrenals: Unremarkable. No mass. Kidneys and ureters: Unremarkable. No solid mass. No hydronephrosis. Stomach and bowel: elongated sigmoid colon. Colonic diverticulosis. No bowel dilatation or obstruction. No bowel wall thickening. PELVIS: Appendix: No findings to suggest acute appendicitis. Bladder: Unremarkable. No mass. Reproductive: Unremarkable as visualized. ABDOMEN and PELVIS: Intraperitoneal space: Unremarkable. No free air. No significant fluid collection. Bones/joints: L5-S1 degenerative disc disease. No acute fracture visualized. No dislocation. Soft tissues: Umbilical hernia containing fat only. No evidence of edema/incarceration. Vasculature: Unremarkable. No abdominal aortic aneurysm. Lymph nodes: No pathologically enlarged lymph nodes. IMPRESSION: 1. No acute obstructive or inflammatory process identified. 2. Additional non-emergent findings as above. Electronically signed by: Jordana Farmer MD 04/02/2023 4:22 AM CDT Due to temporary technical issues with the PACS/Fluency reporting system, reports are being signed by the in house radiologist without review as a courtesy to ensure prompt reporting. The interpreting r adiologist is fully responsible for the content of the report.
--- NOTE | 2023-04-02 12:37 | RAD REPORT ---
EXAM DESCRIPTION: RAD - Chest Single View - 04/02/2023 12:48 am CLINICAL HISTORY: The patient is 57 years old and is Female; right upper abdomen pain TECHNIQUE: Frontal view of the chest. COMPARISON: No relevant prior studies available. FINDINGS: Lungs: Unremarkable. No consolidation. Pleural space: Unremarkable. No pneumothorax. Heart: Unremarkable. Mediastinum: Unremarkable. Bones/joints: Unremarkable. IMPRESSION: No acute findings in the chest. Electronically signed by: Emeka Huston MD 04/02/2023 1:05 AM CDT Due to temporary technical issues with the PACS/Fluency reporting system, reports are being signed by the in house radiologist without review as a courtesy to ensure prompt reporting. The interpreting r adiologist is fully responsible for the content of the report.
--- NOTE | 2023-04-02 12:39 | RAD REPORT ---
EXAM DESCRIPTION: CT - Head Brain Wo Luis M - 04/02/2023 5:19 am CLINICAL HISTORY: The patient is 57 years old and is Female; DIZZINESS TECHNIQUE: Axial computed tomography images of the head/brain without intravenous contrast. Sagitt al and coronal reformatted images were created and reviewed. This CT exam was performed using one o r more of the following dose reduction techniques: automated exposure control, adjustment of the mA and/or kV according to patient size, and/or use of iterative reconstruction technique. COMPARISON: September 21, 2021. FINDINGS: Brain: Mild nonspecific white matter changes likely related to chronic microvascular isc hemic disease. Mild cerebral atrophy. No hemorrhage. Ventricles: Mild to moderate ventricular prominence, similar to prior. Bones/joints: Unremarkable. No acute fracture. Soft tissues: Unremarkable. Sinuses: Unremarkable as visualized. Mastoid air cells: Unremarkable as visualized. No mastoid effusion. IMPRESSION: No acute intracranial abnormality. Electronically signed by: Emeka Huston MD 04/02/2023 4:01 AM CDT Due to temporary technical issues with the PACS/Fluency reporting system, reports are being signed by the in house radiologist without review as a courtesy to ensure prompt reporting. The interpreting r adiologist is fully responsible for the content of the report.
--- NOTE | 2023-04-02 13:46 | EKG ---
Test Date: 2023-04-02 Test Time: 00:30:39 Carousel Operator: TRAVIS MEASUREMENT RESULTS: Intervals: Rate: 63 CO: 158 QRSD: 80 QT: 422 QTc: 431 [place]: P: 63 CO: 158 QRS: 63 T: 49 INTERPRETIVE STATEMENTS: Normal sinus rhythm Normal ECG Compared to ECG 09/21/2021 16:11:41 Sinus bradycardia no longer present ST (T wave) deviation no longer present Electronically Signed On 04-02-23 13:44:57 CDT by Brendon Bills
== END 2023-04-02 04:55 | disposition home or self-care (01) ==
LOC: ER 23:30
DX: N39.0 Urinary tract infection, site not specified (principal); R11.0 Nausea; F17.210 Nicotine dependence, cigarettes, uncomplicated
CPT/HCPCS: 93005; 85025; 81001; 80048; 36415; 83735; 80076; 84484; 83690; 70450; 74177; 71045; 76705; 96375; 96374; 99284; J2405; J0696

== ENCOUNTER 2024-11-28 10:08 | Emergency (ER) | payer OTHER, SELFPAY ==
[2024-11-28] MEDS ORDERED: METHYLPREDNISOLONE 125 MG INJ ONE (10:37)
[2024-11-28] MEDS ORDERED: NA CHLORIDE 0.9% 1,000 ML ONE (10:38)
[2024-11-28] MEDS ORDERED: HYDROCODONE/APAP 10/325 TAB ONE (10:38)
[2024-11-28 10:45] LABS: Absolute Lymphocytes (CBC) 0.3 K/uL (0.7-4.9); Absolute Monocytes 0.5 K/uL (0.1-1.3); Absolute Neutrophil 13.3 K/uL (1.8-8.0); Basophils % 0.1 % (0-1.3); Hematocrit 40.1 % (36.0-45.0); Hemoglobin 13.7 g/dL (12.0-15.0); Lymphocytes % 2.4 % (15.3-44.8); MCH 30.8 pg (27.0-35.0); MCHC 34.2 g/dL (32.0-36.0); MPV 8.1 fL (7.6-11.3); Monocytes % 3.8 % (3.3-12.3); Neutrophils % 93.7 % (41.7-73.7); Nucleated Red Blood Cells % 0.1 % (0-0); Platelets 226 thou/uL (152-406); RBC Red Blood Cell Count 4.46 M/uL (3.86-4.86); Red Cell Distribution Width 13.5 % (12.1-15.2)
[2024-11-28 11:00] LABS: Albumin 3.5 g/dL (3.4-5.0); Albumin/Globulin Ratio 0.9 (1.1-1.8); Bilirubin Direct 0.3 mg/dL (0-0.2); Bilirubin Indirect, Calculated 0.7 mg/dL (0.2-0.8); Globulin 3.9 g/dL (2.3-3.5); Magnesium 2.3 mg/dL (1.6-2.4); Protein, Total 7.4 g/dL (6.4-8.2); Troponin High Sensitivity 17.2 pg/mL (<58.9)
--- NOTE | 2024-11-28 11:12 | RAD REPORT ---
EXAMINATION: CT LUMBAR SPINE WITHOUT CONTRAST CLINICAL INDICATION: Lower back pain TECHNIQUE: Axial CT images were obtained through the lumbar spine in soft tissue and bone windows wit hout intravenous contrast. Coronal and Sagittal reformatted images were created from the data set. One or more of the following dose reduction techniques were used: Automated exposure control, adjustm ent of the mA and/ or kV according to patient size, and/or iterative reconstruction. Unless otherwise specified, incidental findings do not require dedicated imaging follow-up. COMPARISON: No prior exam. FINDINGS: For purposes of this dictation, it is assumed that there are 5 non rib-bearing lumbar type vertebrae, and the most caudal fully segmented lumbar vertebra is labeled L5. Some images are degraded by patient motion artifact. No fracture seen No dislocation. Small left lateral disc herniation L4-5. L5-S1 disc is thinned. Vacuum phenomena present. No high-grade central spinal stenosis seen IMPRESSION: No fracture seen. Small left lateral disc herniation L4-5 If the patient continues to have symptoms to suggest significant spinal canal/neural foraminal pathol ogy then MRI would be recommended
--- NOTE | 2024-11-28 11:13 | RAD REPORT ---
Procedure: Chest Single View HISTORY: Chest pain. Back pain COMPARISON: 2022 FINDINGS: The lungs appear clear of acute infiltrate. No significant pleural effusion noted. The heart is normal size. IMPRESSION: No acute abnormality is displayed.
[2024-11-28 12:08] LABS: Blood Morphology Comment NOT SEEN (NOT SEEN); Platelet Estimate ADEQ; White Blood Cell Scan OK (OK)
--- NOTE | 2024-11-28 13:53 | ER ---
Nurse's Notes [facility] Name: Erma Pham Age: 59 yrs Sex: Female : 1965 Arrival Date: 11/28/2024 Time: 10:08 Bed 8 Private MD: Diagnosis: Low back pain;Hypokalemia Presentation: 11/28 10:20 Chief complaint: EMS states: Called to patient's home due to patient having increased cm10 back pain and increased weakness. Pt has a history of MS and is not compliant with medications per pts son. Coronavirus screen: Client denies travel out of the [place] in the last 14 days. Ebola Screen: Patient denies travel to an Ebola-affected area in the 21 days before illness onset. Initial Sepsis Screen: Does the patient meet any 2 criteria? No. Patient's initial sepsis screen is negative. Does the patient have a suspected source of infection? No. Patient's initial sepsis screen is negative. Risk Assessment: Do you want to hurt yourself or someone else? Patient reports no desire to harm self or others. Onset of symptoms was November 28, 2024. 10:20 Method Of Arrival: EMS: [facility] cm10 10:20 Acuity: JUSTIN 3 cm10 Triage Assessment: 10:21 General: Appears in no apparent distress. uncomfortable, Behavior is calm, cooperative, cm10 appropriate for age. Pain: Complains of pain in back Pain does not radiate. Pain currently is 10 out of 10 on a pain scale. Neuro: No deficits noted. Level of Consciousness is awake, alert, obeys commands, Oriented to person, place, time, situation, Appropriate for age. Respiratory: No deficits noted. Airway is patent Respiratory effort is even, unlabored, Respiratory pattern is regular, symmetrical. Musculoskeletal: Range of motion: limited in all extremities, Reports pain in back. Historical: - Allergies: 10:19 No Known Allergies; cm10 - PMHx: 10:19 Multiple Sclerosis; cm10 - PSHx: 10:19 None; cm10 - Immunization history:: Adult Immunizations unknown. - Infectious Disease History:: Denies. - Social history:: Smoking status: unknown. - Family history:: not pertinent. Screenin:22 [facility] ED Fall Risk Assessment (Adult) History of falling in the last 3 months, cm10 including since admission No falls in past 3 months (0 pts) Confusion or Disorientation No (0 pts) Intoxicated or Sedated No (0 pts) Impaired Gait Yes (1 pt) Mobility Assist Device Used Yes (1 pt) Altered Elimination Yes (1 pt) Score/Fall Risk Level 3 or more points = High Risk Oriented to surroundings, Maintained a safe environment, Hourly rounding (assess needs \T\ fall precautionary measures) done. Abuse screen: Denies threats or abuse. Denies injuries from another. Nutritional screening: No deficits noted. Tuberculosis screening: No symptoms or risk factors identified. Assessment: 12:03 Reassessment: Patient appears in no apparent distress at this time. Patient and/or cm10 family updated on plan of care and expected duration. Pain level reassessed. Patient is alert, oriented x 3, equal unlabored respirations, skin warm/dry/pink. Patient states feeling better. Patient states symptoms have improved. 14:24 Reassessment: Patient appears in no apparent distress at this time. Patient and/or cm10 family updated on plan of care and expected duration. Pain level reassessed. Patient is alert, oriented x 3, equal unlabored respirations, skin warm/dry/pink. Vital Signs: 10:20 BP 119 / 88; Pulse 84; Resp 15; Temp 98.5(O); Pulse Ox 99% ; Weight 71.21 kg (M); cm10 Height 4 ft. 11 in. ; Pain 10/10; 11:30 BP 124 / 83; Pulse 81; Resp 15; Pulse Ox 99% on R/A; cm10 12:00 Pain 7/10; cm10 12:30 BP 127 / 82; Pulse 82; Resp 17; Pulse Ox 99% ; cm10 13:30 BP 111 / 74; Pulse 77; Resp 16; Pulse Ox 97% ; cm10 10:20 Body Mass Index 30.82 (71.21 kg, 152 cm) cm10 10:20 Pain Scale: Adult cm10 12:00 Pain Scale: Adult cm10 ED Course: 10:16 Patient arrived in ED. cm10 10:21 Triage completed. cm10 10:21 Arm band placed on right wrist. Patient placed in an exam room, on a stretcher, on cm10 pulse oximetry. 10:22 Otto Finnegan MD is Attending Physician. rt 10:22 Patient has correct armband on for positive identification. Bed in low position. Call cm10 light in reach. Side rails up X2. Provided Education on: ER process and procedures.. Client placed on continuous cardiac and pulse oximetry monitoring. NIBP monitoring applied. monitor tech on. Door closed. Warm blanket given. Pillow given. 10:23 Yudy Pisano, RN is Primary Nurse. cm10 10:30 Initial lab(s) drawn, by me, sent to lab. Inserted saline lock: 20 gauge in right cm10 antecubital area, using aseptic technique. Blood collected. Flushed with 10 mL NS. 10:31 Basic Metabolic Panel Sent. cm10 10:31 CBC with Diff Sent. cm10 10:31 LFT's Sent. cm10 10:31 Magnesium Sent. cm10 10:31 Troponin HS Sent. cm10 10:45 CT Lumbar Spine Wo Con In Process Unspecified. EDMS 10:52 XRAY Chest (1 view) In Process Unspecified. EDMS 11:05 EKG done, by ED staff, reviewed by Otto Finnegan MD. cm10 14:24 No provider procedures requiring assistance completed. IV discontinued, intact, cm10 bleeding controlled, No redness/swelling at site. Pressure dressing applied. Administered Medications: 11:04 Drug: [place] PO 10 mg-325 mg 1 tabs PO once Route: PO; cm10 12:00 Follow up: Pain 7/10 Adult; Response: No adverse reaction; Pain is decreased cm10 11:04 Drug: NS 0.9% IV 1000 ml IV at 1000 ml once; to be given as a bolus over 60 minutes cm10 Route: IV; Rate: 1000 ml; Site: right antecubital; 12:00 Follow up: Response: No adverse reaction; IV Status: Completed infusion; IV Intake: cm10 1000ml 11:05 Drug: MethylPrednisoLONE IVP 125 mg IVP once Route: IVP; Site: right antecubital; cm10 12:04 Follow up: Response: No adverse reaction cm10 14:23 Drug: Potassium Chloride PO Liquid 40 mEq PO once Route: PO; cm10 14:23 Follow up: Response: Medication administered at discharge. cm10 Medication: 10:22 VIS not applicable for this client. cm10 Intake: 12:00 IV: 1000ml; Total: 1000ml. cm10 Outcome: 13:53 Discharge ordered by . rt 14:24 Discharged to home via wheelchair, with family, cm10 14:24 Condition: good 14:24 Discharge instructions given to patient, Instructed on discharge instructions, follow up and referral plans. medication usage, Demonstrated understanding of instructions, follow-up care, medications, Prescriptions given X 4, 14:25 Patient left the ED. cm10 Signatures: Dispatcher [employer] EDOtto Rodriguez MD MD rt Martinez, Clarissa, RN RN cm10
--- NOTE | 2024-11-28 13:53 | EDPHYS ---
Physician Documentation [facility] Name: Erma Pham Age: 59 yrs Sex: Female : 1965 Arrival Date: 11/28/2024 Time: 10:08 Bed 8 Private MD: ED Physician Otto Finnegan HPI: 11/28 11:57 This 59 yrs old Female presents to ER via EMS with complaints of Back Pain, rt General Weakness. 11:57 Patient with history of multiple sclerosis presents to the ED with worsening back pain rt over the past few days. She reports generalized weakness. She denies fever, chills. Denies other acute complaints at this time, symptoms are moderate in severity, no other aggravating or alleviating factors.. Historical: - Allergies: 10:19 No Known Allergies; cm10 - PMHx: 10:19 Multiple Sclerosis; cm10 - PSHx: 10:19 None; cm10 - Immunization history:: Adult Immunizations unknown. - Infectious Disease History:: Denies. - Social history:: Smoking status: unknown. - Family history:: not pertinent. ROS: 11:57 Constitutional: Negative for fever, chills, and weight loss, Cardiovascular: Negative rt for chest pain, palpitations, and edema, Respiratory: Negative for shortness of breath, cough, wheezing, and pleuritic chest pain, Abdomen/GI: Negative for abdominal pain, nausea, vomiting, diarrhea, and constipation, Skin: Negative for injury, rash, and discoloration, Neuro: Negative for headache, weakness, numbness, tingling, and seizure, 11:57 Back: Positive for pain at rest, Negative for injury or acute deformity, 11:57 Neuro: Positive for weakness, Negative for loss of consciousness, Exam: 11:57 Constitutional: This is a well developed, well nourished patient who is awake, alert, rt and in no acute distress. Head/Face: Normocephalic, atraumatic. Chest/axilla: Normal chest wall appearance and motion. Nontender with no deformity. No lesions are appreciated. Cardiovascular: Regular rate and rhythm with a normal S1 and S2. No gallops, murmurs, or rubs. Normal PMI, no JVD. No pulse deficits. Respiratory: Lungs have equal breath sounds bilaterally, clear to auscultation and percussion. No rales, rhonchi or wheezes noted. No increased work of breathing, no retractions or nasal flaring. Abdomen/GI: Soft, non-tender, with normal bowel sounds. No distension or tympany. No guarding or rebound. No evidence of tenderness throughout. Skin: Warm, dry with normal turgor. Normal color with no rashes, no lesions, and no evidence of cellulitis. MS/ Extremity: Pulses equal, no cyanosis. Neurovascular intact. Full, normal range of motion. Neuro: Awake and alert, GCS 15, oriented to person, place, time, and situation. Cranial nerves II-XII grossly intact. Motor strength 5/5 in all extremities. Sensory grossly intact. Cerebellar exam normal. Normal gait. 11:57 ECG was reviewed by the Attending Physician. Vital Signs: 10:20 BP 119 / 88; Pulse 84; Resp 15; Temp 98.5(O); Pulse Ox 99% ; Weight 71.21 kg (M); cm10 Height 4 ft. 11 in. ; Pain 10/10; 11:30 BP 124 / 83; Pulse 81; Resp 15; Pulse Ox 99% on R/A; cm10 12:00 Pain 7/10; cm10 12:30 BP 127 / 82; Pulse 82; Resp 17; Pulse Ox 99% ; cm10 13:30 BP 111 / 74; Pulse 77; Resp 16; Pulse Ox 97% ; cm10 10:20 Body Mass Index 30.82 (71.21 kg, 152 cm) cm10 10:20 Pain Scale: Adult cm10 12:00 Pain Scale: Adult cm10 MDM: 10:22 Medical Screening Exam initiated rt 16:19 Differential diagnosis: Mechanical back pain, disc disease, multiple sclerosis. Data rt reviewed: vital signs, nurses notes, lab test result(s), radiologic studies. I considered the following discharge prescriptions or medication management in the emergency department Medications were administered in the Emergency Department. See MAR. Independent interpretation of the following test(s) in the Emergency Department CT Scan: My interpretation is No compression fracture seen on interpretation of CT scan images. Care significantly affected by the following chronic conditions: Multiple sclerosis. Counseling: I had a detailed discussion with the patient and/or guardian regarding the historical points, exam findings, and any diagnostic results supporting the discharge/admit diagnosis, lab results, radiology results, the need for outpatient follow up. Response to treatment: the patient's symptoms have markedly improved after treatment. 11/28 10:23 Order name: Basic Metabolic Panel; Complete Time: 11:21 rt 11/28 10:23 Order name: CBC with Diff; Complete Time: 12:09 rt 11/28 10:23 Order name: LFT's; Complete Time: 11:21 rt 11/28 10:23 Order name: Magnesium; Complete Time: 11:21 rt 11/28 10:23 Order name: Troponin HS; Complete Time: 11: rt 11/28 10:51 Order name: CBC Smear Scan; Complete Time: 12:09 EDMS 11/28 10:23 Order name: CT Lumbar Spine Wo Con; Complete Time: 11: rt 11/28 10:23 Order name: XRAY Chest (1 view); Complete Time: 11: rt 11/28 10:23 Order name: EKG; Complete Time: 10:24 rt 11/28 10:23 Order name: Cardiac monitoring; Complete Time: 11:04 rt 11/28 10:23 Order name: EKG - Nurse/Tech; Complete Time: 11: rt 11/28 10:23 Order name: IV Saline Lock; Complete Time: 10:30 rt 11/28 10:23 Order name: Labs collected and sent; Complete Time: 10:30 rt 11/28 10:23 Order name: O2 Per Protocol; Complete Time: 10: rt 11/28 10:23 Order name: O2 Sat Monitoring; Complete Time: 10:30 rt EC:57 Rate is 81 beats/min. Rhythm is regular, Normal Sinus Rhythm with No ectopy. QRS [place] rt is Normal. IL interval is normal. QRS interval is normal. QT interval is prolonged at 539 msec. No Q waves. Clinical impression: NSR w/ Non-specific ST/T Changes. Administered Medications: 11:04 Drug: [place] PO 10 mg-325 mg 1 tabs PO once Route: PO; cm10 12:00 Follow up: Pain 7/10 Adult; Response: No adverse reaction; Pain is decreased cm10 11:04 Drug: NS 0.9% IV 1000 ml IV at 1000 ml once; to be given as a bolus over 60 minutes cm10 Route: IV; Rate: 1000 ml; Site: right antecubital; 12:00 Follow up: Response: No adverse reaction; IV Status: Completed infusion; IV Intake: cm10 1000ml 11:05 Drug: MethylPrednisoLONE IVP 125 mg IVP once Route: IVP; Site: right antecubital; cm10 12:04 Follow up: Response: No adverse reaction cm10 14:23 Drug: Potassium Chloride PO Liquid 40 mEq PO once Route: PO; cm10 14:23 Follow up: Response: Medication administered at discharge. cm10 Disposition Summary: 11/28/24 13:53 Discharge Ordered Notes: Location: Home rt Problem: an acute exacerbation rt Symptoms: have improved rt Condition: Stable rt Diagnosis - Low back pain rt - Hypokalemia rt Followup: rt - With: Private Physician - When: 2 - 3 days - Reason: Discharge Instructions: - Discharge Summary Sheet rt - Acute Back Pain, Adult rt Forms: - Medication Reconciliation Form rt - Antibiotic Education rt - Prescription Opioid Use rt - Patient Portal Instructions rt - Leadership Thank You Letter rt Prescriptions: - gabapentin 100 mg Oral capsule - take 1 capsule ORAL route every 8 hours; 30 capsule; Refills: 0, Product rt Selection Permitted - Lactulose 10 gram/15 mL Oral Solution - take 30 milliliters ORAL route once daily; 300 milliliter; Refills: 0, Product rt Selection Permitted - Tramadol 50 mg Oral Tablet - take 1 tablet ORAL route every 8 hours as needed; 12 tablet; Refills: 0, rt Product Selection Permitted - Prednisone 20 mg Oral Tablet - take 2 tablets ORAL route once daily for 5 days; 10 tablet; Refills: 0, Product rt Selection Permitted Signatures: Dispatcher [employer] EDMS Otto Finnegan MD MD rt Yudy Pisano RN RN cm10 Corrections: (The following items were deleted from the chart) 10:24 10:24 BASIC METABOLIC PANEL+C.LAB.BRZ ordered. EDMS EDMS 10:24 10:24 CBC+H.LAB.BRZ ordered. EDMS EDMS 10:24 10:24 HEPATIC FUNCTION+C.LAB.BRZ ordered. EDMS EDMS 10:24 10:24 MAGNESIUM+C.LAB.BRZ ordered. EDMS EDMS 10:24 10:24 Troponin High Sensitivity+C.LAB.BRZ ordered. EDMS EDMS
[2024-11-28] MEDS ORDERED: POTASSIUM CL SA 10 MEQ TAB PO ONE (14:08)
[2024-11-28 17:25] VITALS: TEMP 98.5
[2024-11-28 17:29] VITALS: BP 111/74; O2SAT 97
== END 2024-11-28 14:25 | disposition home or self-care (01) ==
LOC: ER 10:08
DX: M54.50 Low back pain, unspecified (principal); E87.6 Hypokalemia
CPT/HCPCS: 96361; 85025; 80048; 36415; 83735; 80076; 84484; 72131; 71045; 96374; 99285; J2919; J7030